=== PATIENT | male | born 1950 | race Caucasian/White ===

== ENCOUNTER 2022-02-21 12:24 | Emergency (ER) | payer MEDICARE, BC, SELFPAY ==
[2022-02-21 12:37] VITALS: BP 145/83; PULSE 86; RESP 16; TEMP 37.2; O2SAT 99
--- NOTE | 2022-02-21 12:46 | ED.EYEPROB ---
HPI - Eye Problem General Chief complaint: Eye Problems Stated complaint: lump on left eye Time Seen by Provider: 02/21/22 12:46 Source: patient Mode of arrival: ambulatory Limitations: no limitations History of Present Illness HPI Narrative: 72-year-old male presents with redness, pain with a bump to his left lower eyelid for 3 to 4 days. He denies vision change. No drainage. Call his PCP for appointment but was unable to see him today. Does not wear contacts. All systems reviewed and negative except as noted above. Related Data Home Medications Medication Instructions Recorded Confirmed celecoxib 200 mg PO DAILY 02/21/22 02/21/22 doxycycline hyclate 20 mg PO DAILY 02/21/22 02/21/22 pimecrolimus 1 applic TOPICAL DAILY 02/21/22 02/21/22 Allergies Allergy/AdvReac Type Severity Reaction Status Date / Time No Known Allergies Allergy Verified 02/21/22 12:50 Review of Systems Review of Systems: CONSTITUTIONAL: Denies fever, chills, or sweats. EYES: Denies visual changes, redness, or discharge. Tenderness and bump to left lower eyelid. ENT: Denies rhinorrhea, congestion, sore throat, or otalgia. CARDIOVASCULAR: Denies chest pain, palpitations, or edema. RESPIRATORY: Denies cough or dyspnea. GASTROINTESTINAL: Denies abdominal pain, nausea, vomiting, or diarrhea. GENITOURINARY: Denies dysuria or hematuria. SKIN: Denies rash or itching. MUSCULOSKELETAL: Denies back pain, joint pain, or myalgia. NEUROLOGIC: Denies headache, numbness, or weakness. PSYCHIATRIC: Denies anxiety or depression. All other systems reviewed are negative, except as documented in HPI. PMFSH Comments At time of signature, agree with nursing past medical, surgical, social and family history. There is no relevant family history pertinent to the presenting complaint. Exam Narrative: GENERAL: This is a well-nourished, well-developed patient, in no apparent distress. HEAD: normocephalic, atraumatic. EYES: PERRL. Sclera clear/white. Vision is grossly intact. Stye to internal left lower eyelid. Wright noted. EARS: External ears normal NOSE: External nose normal THROAT: Mucous membranes moist NECK: Neck supple, non-tender without lymphadenopathy, masses or thyromegaly. CARDIOVASCULAR: Regular rate and rhythm without murmurs, gallops, or rubs. RESPIRATORY: Clear to auscultation. Breath sounds equal bilaterally. No wheezes, rales, or rhonchi. SKIN: warm, Dry, intact with no suspicious lesions or rash, good texture and turgor. NEURO: awake, alert, and oriented to person, place and time. There were no obvious focal neurologic abnormalities. EXTREMITIES: Normal range of motion all extremities. Course Course Level of Care: Express Care Visit Vital Signs Vital signs: Vital Signs Temperature 37.2 C 02/21/22 12:37 Pulse Rate 86 02/21/22 12:37 Respiratory Rate 16 02/21/22 12:37 Blood Pressure 145/83 H 02/21/22 12:37 Pulse Oximetry 99 02/21/22 12:37 Temperature 37.2 C 02/21/22 12:37 Pulse Rate 86 02/21/22 12:37 Respiratory Rate 16 02/21/22 12:37 Blood Pressure 145/83 H 02/21/22 12:37 Pulse Oximetry 99 02/21/22 12:37 At time of signature, agree with nursing past medical, surgical, social and family history. There is no relevant family history pertinent to the presenting complaint. MDM - Eye Problem MDM Narrative Medical decision making narrative: Patient is aware of diagnosis, understands and agrees to treatment plan. Anticipatory guidance given. Patient agrees to follow-up as directed and is aware of reasons to seek care at the emergency department. Portions of this record may have been created with voice recognition software Discharge Plan Discharge Clinical Impression: Hordeolum internum left lower eyelid Patient Disposition: Home, Self-Care Condition: Stable Instructions: Sonia Warner (ED) Additional Instructions: Apply antibiotic ointment as prescribed. Apply warm compress 4 times
== END 2022-02-21 12:57 | disposition home or self-care (01) ==
PROVIDERS: Emergency Provider Nurse Practitioner Family; PCP Internal Medicine
DX: H00.025 Hordeolum internum left lower eyelid (principal); Z96.659 Presence of unspecified artificial knee joint
CPT/HCPCS: 99213; G0463

== ENCOUNTER 2023-01-30 09:22 | Emergency (ER) | payer MEDICARE, BC, SELFPAY ==
--- NOTE | 2023-01-30 09:26 | ED.URI ---
HPI - URI/Sore Throat General Chief Complaint: Upper Respiratory Infection Stated Complaint: Cough/Sinus Time Seen by Provider: 01/30/23 09:27 Source: patient Mode of arrival: ambulatory Limitations: no limitations History of Present Illness HPI Narrative: Parvez is a 73-year-old male patient presenting to the clinic today with complaints of cough and sinus congestion x1 week. He reports no fever or chills. He denies any shortness of breath or chest pain. No known exposure to anybody with COVID, flu, or strep. MD elicited complaint: cough, rhinorrhea and nasal congestion Related Data Home Medications Medication Instructions Recorded Confirmed aspirin 81 mg tablet,delayed mg 01/30/23 release atorvastatin 80 mg tablet mg 01/30/23 benzonatate 100 mg capsule mg PO 01/30/23 lisinopril 2.5 mg tablet mg 01/30/23 metoprolol tartrate 25 mg tablet mg 01/30/23 ticagrelor 90 mg tablet (Brilinta) mg 01/30/23 Allergies Allergy/AdvReac Type Severity Reaction Status Date / Time No Known Allergies Allergy Verified 02/21/22 12:50 Review of Systems Review of Systems: Pertinent positives per HPI. Patient denies any fever, chills, rash, headache, visual changes, dizziness, shortness of breath, chest pain, palpitations, nausea, vomiting, diarrhea, constipation, abdominal pain, or any urinary issues. PMFSH Comments At the time of my signature, I reviewed and agree with the nursing past medical, surgical, social, and family history. There is no relevant family history pertinent to the patient complaint. Exam Narrative: General: Well-developed, well nourished, in no apparent distress Head: Normocephalic, atraumatic Eyes: Pupils equally round and reactive to light bilaterally, EOM intact, sclera and conjunctive clear, no discharge, lids normal Ears: TMs intact and clear, ear canals clear, no drainage, grossly hearing normal. Nose: Nares patent, clear nasal discharge, mild inflammation, no sinus tenderness. Mouth: Oral pharynx without lesions or masses, good dentition, MMM. Postnasal drip Neck: Supple, trachea midline, no enlargement of anterior or posterior cervical nodes, no thyroid masses or goiter palpable. Cardio: Regular rate and rhythm, s1 and s2 normal, no murmur appreciated. Resp: Clear to auscultation bilaterally, no rhonchi, rales, wheezing or rubs Course Course Emergency Course: Portions of this record may have been created with voice recognition software. Level of Care: Express Care Visit Vital Signs Vital signs: Vital signs reviewed MDM - URI/Sore Throat MDM Narrative Medical decision making narrative: At the time of visit patient is resting comfortably on the exam table. I suspect patient has URI with postnasal drip. Prescription for prednisone was sent to the pharmacy and supportive measures were discussed with the patient he voiced understanding discharge instructions and agrees to treatment plan. Differential Diagnosis Differential diagnosis: Likely upper respiratory infection, sinusitis, viral infection, bronchitis, influenza, pharyngitis and other (COVID) Discharge Plan Discharge Clinical Impression: Post-nasal drip Upper respiratory infection Qualifiers: URI type: unspecified URI Qualified Code(s): J06.9 - Acute upper respiratory infection, unspecified Patient Disposition: Home, Self-Care Condition: Stable Instructions: Antibiotic Form, Upper Respiratory Infection (ED), Postnasal Drip (DC) Additional Instructions: Take prescription medications only as prescribed-prednisone May continue Benzonate and Robitussin Increase fluids and stay well hydrated Tylenol/motrin for pain/fever Flonase and OTC antihistamines as directed Vicks vapor rub to open sinuses Sinus rinses for congestion Cepacol spray, cough drops, throat lozenges, warm tea with honey/lemon, gargle salt water to soothe throat BRAT diet for diarrhea Clear liquids x 24 hours then advance as to
[2023-01-30 09:31] VITALS: BP 144/80; PULSE 69; RESP 14; TEMP 36.8; O2SAT 100
== END 2023-01-30 09:46 | disposition home or self-care (01) ==
PROVIDERS: Emergency Provider Nurse Practitioner Family; PCP Internal Medicine
DX: J06.9 Acute upper respiratory infection, unspecified (principal); R09.82 Postnasal drip; Z79.82 Long term (current) use of aspirin
CPT/HCPCS: 99213; G0463

== ENCOUNTER 2023-03-14 14:46 | Emergency (ER) | payer MEDICARE, BC, SELFPAY ==
[2023-03-14 15:00] VITALS: BP 131/75; PULSE 68; RESP 16; TEMP 36.7; O2SAT 99
--- NOTE | 2023-03-14 15:24 | ED.SKABFB ---
HPI - Skin/Abscess/Foreign Bdy General Chief complaint: Skin/Abscess/Foreign Body Stated complaint: Left Arm Wound Time Seen by Provider: 03/14/23 15:24 Source: patient Mode of arrival: ambulatory Limitations: no limitations History of Present Illness HPI narrative: Patient is a 73-year-old male who presents with left arm abrasion that happened 4:00 p.m. last night. States a drill fell and scraped his arm and the bleeding has not stopped. Patient is on blood thinners. Reports cleaning and bandaging it multiple times. Unsure when last tetanus shot was. Related Data Home Medications Medication Instructions Recorded Confirmed aspirin 81 mg tablet,delayed 81 mg DIRECTED 01/30/23 03/14/23 release atorvastatin 80 mg tablet 80 mg DIRECTED 01/30/23 03/14/23 lisinopril 2.5 mg tablet 2.5 mg DIRECTED 01/30/23 03/14/23 metoprolol tartrate 25 mg tablet 25 mg DIRECTED 01/30/23 03/14/23 ticagrelor 90 mg tablet (Brilinta) 90 mg DIRECTED 01/30/23 03/14/23 Allergies Allergy/AdvReac Type Severity Reaction Status Date / Time No Known Allergies Allergy Verified 03/14/23 15:24 Review of Systems Review of Systems: All systems reviewed & are unremarkable except as noted in HPI and below Constitutional: Constitutional: Denies body ache(s), Denies fever(s), Denies headache(s), Denies malaise and Denies weakness Eyes: Eyes: Denies loss of vision ENT: Denies otalgia, Denies headache(s), Denies nasal discharge, Denies sinus pain and Denies sore throat Cardiovascular: Cardiovascular: Denies chest pain, Denies irregular heart rhythm and Denies dyspnea Respiratory: Respiratory: Denies dyspnea Gastrointestinal: Gastrointestinal: Denies abdominal pain, Denies melena, Denies hematochezia, Denies diarrhea, Denies nausea and Denies vomiting Musculoskeletal: Musculoskeletal: Denies back pain, Denies myalgias and Denies arthralgias Integumentary/Breasts: Skin/Breast: Denies pruritus, Denies rash and Reports wounds (Left bicep) Neurologic: Denies headache(s), Denies loss of vision and Denies weakness Psychiatric: Psychiatric: Reports no additional psychiatric complaints PMFSH Comments At time of signature, agree with nursing past medical, surgical, social and family history. There is no relevant family history pertinent to the presenting complaint. Exam Const: General: cooperative, healthy appearing, comfortable, no acute distress and well nourished Nutritional Appearance: well nourished Orientation/consciousness: patient oriented x3 Limitations: no limitations HENMT: Head: normal to inspection, normocephalic and atraumatic Ears: external ears normal Face/Nose/Sinus: Normal external nose present, normal facial exam and face symmetric Face and sinus: normal facial exam and face symmetric Mouth: Yes lip normal Eyes: General: appearance normal, both eyes and all related structures Alignment and Position: alignment normal and position normal Periorbital: periorbital findings normal Eyelids: eyelids normal Pupils: Equal, round and reactive pupils present EOM: EOMs intact bilaterally Neck: Neck: normal visual inspection and full ROM Chest: Chest palpation & inspection: normal inspection of the chest Resp: Effort & Inspection: normal respiratory effort and able to speak in complete sentences Auscultation: clear to auscultation bilaterally Cardio: Rate: regular rate Rhythm: regular rhythm Heart sounds: S1 normal heart sound present and S2 normal heart sound present GI: Inspection: normal to inspection Skin: General skin exam: normal color and no rashes or lesions noted Trauma: laceration left lateral upper arm linear (4 cm, proximal 1cm with active bleeding and abrasion present), actively bleeding and superficial Neuro: General: patient oriented x3 and moves all extremities Cranial nerves: Yes Equal, round and reactive pupils present Speech: normal speech Gait exam (Neuro): Normal gait present Extrem: General:
[2023-03-14] MEDS: TETANUS,DIPHTHERIA,AC PERTUSSIS ADULT (0.5 ML) BOOSTRIX IM (16:02)
== END 2023-03-14 16:13 | disposition home or self-care (01) ==
PROVIDERS: Emergency Provider Nurse Practitioner Family; PCP Internal Medicine
DX: S41.112A Laceration without foreign body of left upper arm, initial encounter (principal); W20.8XXA Other cause of strike by thrown, projected or falling object, initial encounter; Z23 Encounter for immunization; I25.10 Atherosclerotic heart disease of native coronary artery without angina pectoris; Z96.653 Presence of artificial knee joint, bilateral
CPT/HCPCS: 90471; 90715; 99212; G0463

== ENCOUNTER 2024-03-22 07:47 | Outpatient (CLI) | payer MEDICARE, BC, SELFPAY ==
--- NOTE | ~2024-03-22 | PE_ITS ---
EXAMINATION: PET_PETPSMAST_PT DATE: 03/22/2024 10:09 INDICATION: Prostate cancer. TECHNIQUE: 4.935 mCi Ga-68 gozetotide was administered intravenously. Low dose computed tomography (C T) images were acquired from the base of the brain to the proximal thighs for attenuation correction and anatomic localization. Automated exposure control was employed. Dose-length product (DLP) was 985 mGy-cm. Positron emission tomography (PET) images were acquired in the same distribution. COMPARISON: None FINDINGS: Head/neck: There are no pathologically enlarged lymph nodes. Chest: There is mild scarring at the lung apices. There are calcified pleural plaques bilaterally, wh ich may be seen with asbestos exposure. There are peripheral airspace opacities and septal thickening in the lungs, consistent with chronic interstitial lung disease (asbestosis). No bronchiectasis or h oneycombing. Cardiomegaly is noted. There are coronary artery calcifications. No pericardial effusion . There is mild mediastinal lymphadenopathy, likely reactive. There is mild bilateral gynecomastia. Abdomen/pelvis/proximal thighs: The liver, gallbladder, spleen, pancreas, adrenal glands, and kidneys are normal. The prostate is moderately enlarged. There is focal increased activity in the prostate o n the right with maximum SUV of 20.4. There is diffuse bladder wall thickening, likely secondary to c hronic outlet obstruction. There are no dilated loops of bowel. The appendix is normal. There are no pathologically enlarged lymph nodes. There is no free intraperitoneal fluid. There is a right inguina l hernia containing fat. There are widespread arterial calcifications. There are chronic bilateral L5 pars defects. There is 10 mm anterolisthesis of L5 on S1. There is no osseous malignancy. IMPRESSION: 1. Moderately enlarged prostate with focal increased activity on the right with maximum SUV of 20.4, consistent with primary malignancy. No evidence of metastatic disease. Reviewed, dictated and finalized at location A. IMPRESSION: 1. Moderately enlarged prostate with focal increased activity on the right with maximum SUV of 20.4, consistent with primary malignancy. No evidence of metast atic disease.
== END 2024-03-22 07:48 | disposition home or self-care (01) ==
PROVIDERS: PCP Internal Medicine; Visit Provider Urology
DX: C61 Malignant neoplasm of prostate (principal)
CPT/HCPCS: 78815; A9596

== ENCOUNTER 2024-07-18 12:46 | Emergency (ER) | payer MEDICARE, BC, SELFPAY | END 2024-07-18 14:00 | disposition left against medical advice (07) | PROVIDERS: Emergency Provider Nurse Practitioner; PCP Internal Medicine | DX: Z53.21 Procedure and treatment not carried out due to patient leaving prior to being seen by health care provider (principal) | CPT/HCPCS: 99199 ==

== ENCOUNTER 2025-01-23 08:19 | Emergency (ER) | payer MEDICARE, BC, SELFPAY ==
[2025-01-23 08:27] VITALS: BP 119/76; PULSE 76; RESP 14; TEMP 36.8; O2SAT 98
--- NOTE | 2025-01-23 08:27 | ED.SKABFB ---
HPI - Skin/Abscess/Foreign Bdy General Chief complaint: Skin/Abscess/Foreign Body Stated complaint: Rash Time Seen by Provider: 01/23/25 08:27 Source: patient, RN notes reviewed and old records reviewed Mode of arrival: ambulatory Limitations: no limitations History of Present Illness HPI narrative: Patient presents with complaints of painful rash that starts on left buttock and goes down the left leg. He reports that the rash has been present for 2-3 days and is quite painful. He denies any injury or trauma. Does admit to history of chickenpox as a child. He has not been taking anything for his symptoms. He voices no other concerns or complaints today. Related Data Home Medications ?Medication ?Instructions ?Recorded ?Confirmed ?Last Taken ?Type aspirin 81 mg tablet,delayed 81 mg DIRECTED 01/30/23 07/18/24 Unknown History release atorvastatin 80 mg tablet 80 mg DIRECTED 01/30/23 07/18/24 Unknown History lisinopril 2.5 mg tablet 2.5 mg DIRECTED 01/30/23 07/18/24 Unknown History metoprolol tartrate 25 mg tablet 25 mg DIRECTED 01/30/23 07/18/24 Unknown History ticagrelor 90 mg tablet (Brilinta) 90 mg DIRECTED 01/30/23 07/18/24 Unknown History epinephrine 0.3 mg/0.3 mL 01/23/25 Unknown History injection, auto-injector tamsulosin 0.4 mg capsule mg PO 01/23/25 Unknown History Allergies Allergy/AdvReac Type Severity Reaction Status Date / Time bee venom protein (honey Allergy Severe Anaphylaxis Verified 01/23/25 08:48 bee) (bees) Review of Systems Review of Systems: All systems reviewed & are unremarkable except as noted in HPI and below Constitutional: Constitutional: Reports no additional constitutional complaints ENT: Reports system reviewed and no additional complaints, except as documented Cardiovascular: Cardiovascular: Reports no additional cardiovascular complaints Respiratory: Respiratory: Reports no additional respiratory complaints Gastrointestinal: Gastrointestinal: Reports no additional gastrointestinal complaints Integumentary/Breasts: Skin/Breast: Reports rash and Reports skin pain PMFSH Comments At the time of my signature, I reviewed and agree with the nursing past medical, surgical, social, and family history. There is no relevant family history pertinent to the patient complaint. Exam Const: General: cooperative, no acute distress, alert and awake Orientation/consciousness: oriented to person, oriented to place and oriented to time HENMT: Head: normal to inspection Resp: Effort & Inspection: normal respiratory effort and able to speak in complete sentences Auscultation: clear to auscultation bilaterally, no crackles, no rales, no rhonchi and no wheezes Cardio: Palpation: normal PMI Rate: regular rate Rhythm: regular rhythm Heart sounds: S1 normal heart sound present and S2 normal heart sound present Skin: Rashes: rashes noted vesicles left posterior other Neuro: General: oriented to person, oriented to place and oriented to time Cranial nerves: Yes CN's II-XII intact bilaterally Psych: Appearance: grossly normal Thought process: Normal thought process present Insight: Good insight present (Psych) Judgement: Good judgement present (Psych) Course Course Level of Care: Express Care Visit Vital Signs Vital signs: Reviewed MDM - Skin/Abscess/Foreign Bdy MDM Narrative Medical decision making narrative: History and exam consistent with shingles, start antiviral therapy. Discharge instructions reviewed with patient, as well as provided in writing per nursing staff. The instructions also include specific and strict return/GO TO THE ER as well as f/u information. All questions have been answered, and the patient deny any further questions with discharge and discharge plan. Some parts of this dictation were generated by voice recognition software and may contain typographical and/or grammatical inaccuracies. Differential Diagnosis Differential diagnosis: Likely dermatophytosis, urticaria, herpes zoster, allergic reaction to drug, cellulitis, insect bites and contact dermatitis Medical Records Attestation: I reviewed the patient's medical records. Discharge Plan Discharge Clinical Impression: Shingles Qualifiers: Herpes zoster complications: without complications Qualified Code(s): B02.9 - Zoster without complications Patient Disposition: Home, Self-Care Condition: Stable Instructions: Antibiotic Form, Shingles (ED) Additional Instructions: Take medications as prescribed. Follow-up with primary care provider. Emergency department for new or worse symptoms Patient Language: Mongolian Prescriptions: New valacyclovir [Valtrex] 1 gram tablet 1,000 mg PO TID 7 Days Qty: 21 1RF No Action tamsulosin 0.4 mg capsule PO epinephrine 0.3 mg/0.3 mL auto-injector atorvastatin 80 mg tablet 80 mg DIRECTED aspirin 81 mg tablet,delayed release (DR/EC) 81 mg DIRECTED lisinopril 2.5 mg tablet 2.5 mg DIRECTED metoprolol tartrate 25 mg tablet 25 mg DIRECTED Brilinta 90 mg tablet 90 mg DIRECTED Follow-up/Referrals: Elizabeth,Urbano Villasenor MD [Primary Care Provider] - 2 Weeks Time of Disposition: 08:55
== END 2025-01-23 09:00 | disposition home or self-care (01) ==
PROVIDERS: Emergency Provider Nurse Practitioner Family; PCP Internal Medicine
DX: B02.9 Zoster without complications (principal); I10 Essential (primary) hypertension; E78.00 Pure hypercholesterolemia, unspecified; Z95.5 Presence of coronary angioplasty implant and graft; Z96.653 Presence of artificial knee joint, bilateral; Z85.46 Personal history of malignant neoplasm of prostate
CPT/HCPCS: 99213; G0463

== ENCOUNTER 2025-05-26 12:56 | Emergency (ER) | payer OTHER, MEDICARE, BC, SELFPAY ==
[2025-05-26] VITALS (12 sets, daily range): BP systolic 121–181; BP diastolic 72–99; PULSE 62–85; RESP 14–22; TEMP 36.8; O2SAT 96–100
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
--- OUTSIDE RECORDS SUMMARY | 2025-05-26 13:48 | XMS_ITS | Referral Summary ---
Author Organization [facility] Address [address] [place] [phone] Care Team Providers Care Mucking Machine Operator Name Role Phone Urbano Johnson MD Primary Care Provider Og Posey MD Unavailable [phone] Kimi Clayton MD Unavailable [phone] Encounters Date Type Department Care Team Description 04/25/2025 8:30 AM CDT Office Visit [facility] [address] [place] [phone] Omar Garcia MD Arthritis of left elbow (Primary Dx) 03/28/2025 8:30 AM CDT Office Visit [facility] [address] [place] [phone] Omar Garcia MD Left carpal tunnel syndrome (Primary Dx); Arthritis of left elbow; Trigger middle finger of right hand; Arthritis of left wrist 03/02/2025 - 03/02/2025 11:59 PM CDT Hospital Encounter [facility] [employer] [address] [place] [address] Discharge Disposition: Discharge to home or self care from Last 3 Months Allergies Active Allergy Reactions Criticality Noted Date Comments Venom-Honey Bee Swelling High 07/20/2024 Medications multivitamin tablet,chewable Take 2 tablet/chew tab by mouth daily Active acetaminophen (TYLENOL) 500 mg tabletIndicatio ns:Pain Take 2 tablets (1,000 mg total) by mouth every 6 (six) hours as needed for pain Active aspirin 81 mg enteric coated tablet Take 1 tablet (81 mg total) by mouth daily 3 Active atorvastatin (LIPITOR) 80 mg tablet Take 1 tablet (80 mg total) by mouth nightly 3 Active lisinopriL (PRINIVIL,ZESTR IL) 2.5 mg tablet Take 1 tablet (2.5 mg total) by mouth daily 3 Active metoprolol tartrate (LOPRESSOR) 25 mg immediate release tablet Take 1 tablet (25 mg total) by mouth 2 (two) times a day 3 Active Brilinta 90 mg tablet 3 Active EPINEPHrine 0.3 mg/0.3 mL auto-injection syringe Inject 0.3 mL (0.3 mg total) into the muscle as instructed as needed 4 Active diphenoxylate-a tropine (LOMOTIL) 2.5-0.025 mg per tablet Take 1 tablet by mouth 4 (four) times a day as needed 4 Active traMADoL (ULTRAM) 50 mg tablet Take 1 tablet (50 mg total) by mouth every 6 (six) hours as needed for pain 15 tablet 4 Active valACYclovir (VALTREX) 500 mg tablet Take 1 tablet (500 mg total) by mouth 3 (three) times a day Active traMADoL (ULTRAM) 50 mg tablet Take 1 tablet (50 mg total) by mouth every 6 (six) hours as needed for pain 15 tablet 5 Active Active Problems Problem Noted Date Diagnosed Date Arthritis of left elbow 03/29/2025 Carpal tunnel syndrome on right 11/10/2024 Carcinoma of prostate 11/10/2024 Hypertension 11/10/2024 Pain of right hand 10/25/2024 Left carpal tunnel syndrome 10/25/2024 Trigger middle finger of right hand 10/25/2024 Hand arthritis 10/25/2024 Left ventricular systolic dysfunction 05/22/2022 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 05/16/2022 H/O heart artery stent 05/16/2022 Status post total right knee replacement 022 Primary osteoarthritis of right knee 10/30/2021 Overview (10/30/2021): Added automatically from request for surgery [id number] Ganglion cyst 08/11/2019 Rupture of biceps tendon 05/16/2010 Social History Tobacco Use Types Packs/Day Years Used Date Smoking Tobacco: Never Smokeless Tobacco: Never Alcohol Use Standard Drinks/Week Comments Yes 12 (1 standard drink = 0.6 oz pu re alcohol) Social Connection and Isolat ion Panel [NHANES] Answer Date Recorded In a typical week, how many times do you talk on the phone with family, friends, or neighbors? More than three times a week 01/03/2022 How often do you get togethe r with friends or relatives? More than three times a week 01/03/2022 How often do you attend chur ch or denominational services? Never 01/03/2022 Do you belong to any clubs o r organizations such as rastafari groups, unions, fraternal or athletic groups, or school groups? No 01/03/2022 How often do you attend meet ings of the clubs or organizations you belong to? Never 01/03/2022 Are you , , di vorced, , never , or living with a partner? 01/03/2022 AUDIT-C Answer Date Recorded Q1: How often do you have a drink containing alc ohol? Monthly or less 01/25/2025 Q2: How many drinks containi ng alcohol do you have on a typical day when you are drinking? 3 or 4 01/25/2025 Q3: How often do you have si x or more drinks on one occasion? Never 01/25/2025 Overall Financial Resource Strain (CARDIA) Answe r Date Recorded How hard is it for you to pa y for the very basics like food, housing, medical care, and heating? Not hard at all 01/03/2022 Hunger Vital Sign Answer Date Recorded Within the past 12 months, y ou worried that your food would run out before you got the money to buy more. Never true 01/03/20 22 Within the past 12 months, t he food you bought just didn't last and you didn't have money to get more. Never true 01/03/2022 PRAPARE - Transportation Answer Date Re corded Lack of Transportation (Medical) Not on file 01/03/2022 In the past 12 months, has l ack of transportation kept you from meetings, work, or from getting things needed for daily living? No 01/03/2022 Housing Stability Vital Sign Answer Arnaldo e Recorded In the last 12 months, was t here a time when you were not able to pay the mortgage or rent on time? No 01/03/2022 Number of Places Lived in the Last Year Not on f ile 01/03/2022 In the last 12 months, was t here a time when you did not have a steady place to sleep or slept in a penitentiary (including now)? No 01/03/2022 Personal Safety Answer Date Recorded Have you ever been in or are you currently in a harmful physical or emotional relationship or is someone making you feel afraid or unsafe? 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 file Not on file Not on f ile Last Filed Vital Signs Vital Sign Reading Time Taken Comments Blood Pressure 125/84 01/25/2025 8:00 AM LEGAL RESEARCH ANALYST Pulse 60 01/25/2025 8:00 AM LEGAL RESEARCH ANALYST Temperature 36.5 C (97.7 F) 01/25/2025 7:48 AM LEGAL RESEARCH ANALYST Respiratory Rate 18 01/25/2025 7:48 AM LEGAL RESEARCH ANALYST Oxygen Saturation 100% 01/25/2025 8:00 AM LEGAL RESEARCH ANALYST Inhaled Oxygen Concentration - - Weight 86.8 kg (191 lb 4.8 oz) 01/25/2025 5:59 A M LEGAL RESEARCH ANALYST Height 177.8 cm (5' 10) 01/25/2025 5:59 AM LEGAL RESEARCH ANALYST Body Mass Index 27.45 01/25/2025 5:59 AM LEGAL RESEARCH ANALYST Plan of Treatment Not on file Medical Devices Implanted Type Area Fence Making Machine Operator Device Identifier Shelf Expiration Date Model / Serial / Lot Left Total Knee Arthroplasty Implanted:Og Posey MD (Quantity not on file) Left: Knee Description:2016 Knee Replacement Bilatera l: Knee [employer] 6191-1-010 Simplex P Radiopaque Full Dose Cement Bone Sterile - [id number] Implanted:Qty: 1 on 01/02/2022 by Og Posey MD at [facility] Right: Knee [employer] 01/22/2024 6191-1-010 / / [id number] [employer]Or tho [id number] Legion 11mm Cruciate Retaining High Flexion Knee 5-6 Insert - [id number] Implanted:Qty: 1 on 01/02/2022 by Og Posey MD at [facility] Right: Knee [employer] [id number] 10/20/2031 [id number] / / [id number] [employer] [id number] Kathy Ii Legion Spc Cruciate Retain Knee Right 7 Component - [id number] Implanted:Qty: 1 on 01/02/2022 by Og Posey MD at [facility] Right: Knee [employer] [id number] 08/21/2031 [id number] / / [id number] [employer] [id number] Kathy Ii [id number] Biconvex Component Patellar - [id number] Implanted:Qty: 1 on 01/02/2022 by Og Posey MD at [facility] [employer] [id number] / / [id number] [employer] [id number] Kathy Ii Cement Right Knee 6 Baseplate Tibial Titanium - [id number] Implanted:Qty: 1 on 01/02/2022 by Og Posey MD at [facility] [employer] [id number] / / [id number] Procedures Procedure Name Priority Date/Time Associated Diagnosis Comments [place] ARTHROCENTESIS ASPIR&/INJ INTERM JT/BURS W/O US Routine 03/28/2025 8:30 AM CDT Arthritis of left elbow XR TRANSFER OF OUTSIDE FILMS Routine 03/02/2025 12:00 AM CDT from Last 3 Months Results * [place] ARTHROCENTESIS ASPIR&/INJ INTERM JT/BURS W/O US (03/28/2025 8:30 AM CDT) Narrative Omar Garcia MD - 03/28/2025 8:30 AM CDT Omar Garcia MD 03/29/2025 6:34 AM Medium Joint (Ankle, Elbow, Shoulder (AC), Wrist) Injection: L elbow Performed by: Omar Garcia MD Authorized by: Omar Garcia MD Medium Joint Injection/Aspiration: Consent Given by: Patient Site marked: the procedure site was marked Verbal consent obtained?: Yes Supporting Documentation: Indications: Pain and joint swelling Procedure Details: Location: Elbow Site: L elbow Prep: patient was prepped and draped in usual sterile fashion Needle Size: 22 G Approach: Posterolateral Medications: 6 mL lidocaine 10 mg/mL (1 %); 80 mg triamcinolone 40 mg/mL us Omar Garcia MD IN CLINIC/BEDSIDE ORDERA BLES Final Result * XR Outside Reference (03/02/2025 12:00 AM CDT) Narrative [facility] - 03/28/2025 8:31 AM CDT This order has been auto-finalized and does not contain a result. us Provider Transcribed Order IMG XR PROCEDURES Fin al Result [facility] from Last 3 Months Insurance MEDICARE [facility] MEDICARE [place] [employer] MEDICARE [facility] O MEDICARE [facility] Advance Directives For more information, please contact: [phone] * Full Code (Latest Code Status on File) Date Activated Date Inactivated Comments 01/02/2022 10:19 AM 01/03/2022 5:04 PM Care Teams Mucking Machine Operator Relationship Specialty Start Date End Date Urbano Johnson MD PCP - General Internal Medicine 01/13/19 Og Posey MD [address] [facility] [address] [address] Consulting Physician Orthopedic Surgery 01/02/22 Kimi Clayton MD [facility] [address] [facility] [place] [address] Referring Physician Interface Designer 11/11/24
--- OUTSIDE RECORDS SUMMARY | 2025-05-26 13:48 | XMS_ITS | Encounter Summary ---
Author Organization [facility] Address [address] [place] [id number] Care Team Providers Care Lunchroom Attendant Name Role Phone Urbano Johnson MD Primary Care Provider [phone] Chrissy Mueller RN Unavailable Encounter Details Date Type Department Care Team (Late st Contact Info) Description 06/04/2022 Hospital Orders Only [facility], [facility] [address] [place], [place] [phone] Ayla Almeida MD [facility]. [facility] [address] [place], [place] [id number] Social History Tobacco Use Types Packs/Day Years Used Date Smoking Tobacco: Never Smokeless Tobacco: Never Alcohol Use Standard Drinks/Week Comments Yes 0 (1 standard drink = 0.6 oz pur e alcohol) couple beers per night AUDIT-C Answer Date Recorded Frequency of Alcohol Consumption 4 or more times a week 02/09/2020 Average Number of Drinks 1 or 2 020 Frequency of Binge Drinking Never 01/22 PHQ-2 Answer Date Recorded PHQ-2 Score - If the patient scores above 3, please move on to questions 3-9 0 05/16/2022 Sex and Gender Information Value Date Recorded Sex Assigned at Male 03/02/2025 8:48 AM CDT Legal Sex Male 5:42 PM CDT Gender Identity Not on file Sexual Orientation Not on file 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 No / Unsure 05/24/2022 12:10 PM CDT documented as of this encounter Functional Status * RETIRED Are you deaf or do you have serious difficulty hearing Answer Date of Assessment Author Status No 05/10/2022 6:23 PM CDT Activ e * RETIRED Are you blind or do you have serious difficulty seeing, even when wearing glasses? Answer Date of Assessment Author Status No 05/10/2022 6:23 PM CDT Activ e * Do you have serious difficulty walking or climbing stairs? Answer Date of Assessment Author Status No 05/10/2022 6:23 PM CDT Carmela Osullivan RN Active * Do you have difficulty dressing or bathing? Answer Date of Assessment Author Status No 05/10/2022 6:23 PM CDT Carmela Osullivan RN Active * Because of a physical, mental, or emotional condition, do you have difficulty doing errands alone such as visiting a doctor's office or shopping? Answer Date of Assessment Author Status No 05/10/2022 6:23 PM CDT Carmela Osullivan RN Active documented as of this encounter Mental Status * Because of a physical, mental, or emotional condition, do you have serious difficulty concentrating, remembering, or making decisions? Answer Entry Date Author Status No 05/10/2022 6:23 PM CDT Carmela Osullivan RN Active documented in this encounter Plan of Treatment Upcoming Encounters Date Type Department Care Team (Late st Contact Info) Description 10/14/2025 10:00 AM WELLNESS MANAGER [facility] [address] [place] [address] Kimi Clayton MD [facility] [address] [place] [address] 11/21/2025 8:20 AM WELLNESS MANAGER Office Visit [facility] Family & Internal Medicine - [address] [phone] Urbano Johnson MD [address] [place] [phone] documented as of this encounter Visit Diagnoses Not on filedocumented in this encounter Additional Health Concerns Assessment Noted Time PHQ-9 Depression Total Score: 0 12/19/19 22 12:12 PM WELLNESS MANAGER documented as of this encounter Care Teams Lunchroom Attendant Relationship Specialty Start Date End Date Urbano Johnson MD [address] [place] [address] PCP - General 10/23/15 Chrissy Mueller, RN [address] [place], [place] [phone] Pyrometer Mechanic (Ambulatory) REGISTERED NURSE 05/13/22 documented as of this encounter
--- OUTSIDE RECORDS SUMMARY | 2025-05-26 13:48 | XMS_ITS | Continuity of Care Document ---
Author Name [facility] Organization [facility] Care Team Providers Care Water Well Driller Name Role Phone [facility] Unavailable Unavailable Problems Combined list of problems from [facility] and [facility] facilities. It does not include entries that were removed or entered in error. Problem Status Onset Date Problem Type Date of Resolution Comments Source Benign essential hypertension Active Condition [facility] Carcinoma of prostate Active Condition [facility] Exposure to potentially hazardous substance ([facility] [id number]) Active Condition Sep 22 4 Entered By: KUSH MURILLO Comment: Entered automatically through JOSEPH Problem List documentation program [facility] Hearing loss Active Condition [facility] Heart disease Active Condition [facility] Hypertension Active Condition [facility] Tinnitus Active Condition [facility] Diagnosis: ICD-10-CM I10 Essential (primary) hypertension Active Diagnosis 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 Medication Details Route Status Patient Instructions Prescription Expires Prescription Number Last Dispense Date Ordering Provider Order Date Order Qty Source ACETAMINOPH EN 325MG TAB TAKE ONE TABLET BY MOUTH FOUR TIMES A DAY NEEDED ORAL ACTIVE Esperanza GOFF 2023 [facility] Matt ASPIRIN 81MG TAB,EC TAKE ONE TABLET BY MOUTH ONCE A DAY ORAL ACTIVE Esperanza GOFF 2023 [facility] Matt ATORVASTATI N CA 80MG TAB TAKE ONE TABLET BY MOUTH EVERY EVENING ORAL ACTIVE Esperanza GOFF 2023 [facility] ATROPINE SO4 0.025MG/DIP HENOXYLATE HCL 2.5MG TAB TAKE ONE TABLET BY MOUTH FOUR TIMES A DAY NEEDED ORAL ACTIVE Esperanza GOFF 2023 [facility] Shaka LISINOPRIL 5MG TAB TAKE ONE-HALF TABLET BY MOUTH ONCE A DAY ORAL ACTIVE Esperanza GOFF 2023 [facility] METOPROLOL TARTRATE 50MG TAB TAKE ONE-HALF TABLET BY MOUTH TWICE A DAY ORAL ACTIVE Esperanza GOFF 2023 [facility] MULTIVITAMI NS CAP/TAB TAKE TWO TABLETS BY MOUTH ONCE A DAY ORAL ACTIVE Esperanza GOFF 2023 [facility] NITROGLYCER IN 0.4MG TAB,SUBLING UAL DISSOLVE ONE TABLET UNDER THE TONGUE ONE-TIME NEEDED SUBLIN GUAL ACTIVE Esperanza GOFF 2023 [facility] Shaka OXYMETAZOLI NE HCL 1% CREAM,TOP APPLY THIN LAYER TO AFFECTED AREA(S) ONCE A DAY TOPICA L ACTIVE Esperanza GOFF 2023 [facility] PIMECROLIMU S 1% CREAM,TOP APPLY LIGHTLY TO AFFECTED AREA(S) TWICE A DAY NEEDED TOPICA L ACTIVE Esperanza GOFF 2023 [facility] Allergies, Adverse Reactions, Alerts Combined list of allergies from [facility] facilities. It does not include entries that were removed or entered in error. Substance Category Reaction Severity Reaction type Status Date Reported Comments Source BEE VENOM Propensity to adverse reaction (finding) Swelling active 09/10/2024 [facility] Immunizations Combined list of available immunizations from the [facility] facilities. Immunization Series Date Given Administered By Site Reaction Lot Number CVX Code Drug Buyer Liaison Status Comments Source TDAP 2022 115 complet ed HISTORICA L INFORMATI ON - FROM PATIENT'S WRITTEN RECORD, [facility] Results Combined list of recent chemistry, hematology and other laboratory results from [facility] and [facility], ranging from 15 months to all on record, depending upon the facility. Order Name Results Value Reference Range Date Interpretation Specimen Comments Source URINALYS IS (STL-PB) COLOR OF URINE Light-Ye llow 09/13 Specimen Type: URINE No comment entered. Ordering Provider: ANGLE GOFF Report Released Date/Time: Sep 10, 2024 01:20 PM Reporting Lab: [address] [address] Performing Lab: [address] [address] [facility] URINALYS IS (STL-PB) BILIRUBIN. TOTAL [PRESENCE] IN URINE BY TEST STRIP Negative mg/dL 09/13 Specimen Type: URINE No comment entered. Ordering Provider: ANGLE GOFF Report Released Date/Time: Sep 10, 2024 01:20 PM Reporting Lab: [address] [address] Performing Lab: [address] [address] [facility] URINALYS IS (STL-PB) PH OF URINE BY TEST STRIP 7.0 5.0 - 8.0 09/13 Specimen Type: URINE No comment entered. Ordering Provider: ANGLE GOFF Report Released Date/Time: Sep 10, 2024 01:20 PM Reporting Lab: [address] [address] Performing Lab: [address] [address] [facility] URINALYS IS (STL-PB) APPEARANCE OF URINE Clear 09/13 Specimen Type: URINE No comment entered. Ordering Provider: ANGLE GOFF Report Released Date/Time: Sep 10, 2024 01:20 PM Reporting Lab: [address] [address] Performing Lab: [address] [place] [address] [facility] URINALYS IS (STL-PB) NITRITE [PRESENCE] IN URINE BY TEST STRIP Negative mg/dL 09/13 Specimen Type: URINE No comment entered. Ordering Provider: ANGLE GOFF Report Released Date/Time: Sep 10, 2024 01:20 PM Reporting Lab: [address] [address] Performing Lab: [address] [address] [facility] URINALYS IS (STL-PB) GLUCOSE [MASS/VOLU ME] IN URINE BY TEST STRIP Normalmg /dL 09/13 Specimen Type: URINE No comment entered. Ordering Provider: ANGLE GOFF Report Released Date/Time: Sep 10, 2024 01:20 PM Reporting Lab: [address] [address] Performing Lab: [address] [address] [facility] URINALYS IS (STL-PB) PROTEIN [MASS/VOLU ME] IN URINE BY TEST STRIP Negative mg/dL 09/13 Specimen Type: URINE No comment entered. Ordering Provider: ANGLE GOFF Report Released Date/Time: Sep 10, 2024 01:20 PM Reporting Lab: [address] [address] Performing Lab: [address] [address] [facility] URINALYS IS (STL-PB) URN.UROBIL INOGEN Normalmg /dL 09/13 Specimen Type: URINE No comment entered. Ordering Provider: ANGLE GOFF Report Released Date/Time: Sep 10, 2024 01:20 PM Reporting Lab: [address] [address] Performing Lab: [address] [place] [address] [facility] URINALYS IS (STL-PB) HEMOGLOBIN [MASS/VOLU ME] IN URINE BY TEST STRIP Negative mg/dL 09/13 Specimen Type: URINE No comment entered. Ordering Provider: ANGLE GOFF Report Released Date/Time: Sep 10, 2024 01:20 PM Reporting Lab: [place] [address] [facility] [address] Performing Lab: [address] [address] [facility] URINALYS IS (STL-PB) KETONES [MASS/VOLU ME] IN URINE BY TEST STRIP Negative mg/dL 09/13 Specimen Type: URINE No comment entered. Ordering Provider: ANGLE GOFF Report Released Date/Time: Sep 10, 2024 01:20 PM Reporting Lab: [address] [address] Performing Lab: [place] [address] [facility] [address] [facility] URINALYS IS (STL-PB) URN.LEUK.E ST. Negative mg/dL 09/13 Specimen Type: URINE No comment entered. Ordering Provider: ANGLE GOFF Report Released Date/Time: Sep 10, 2024 01:20 PM Reporting Lab: [place] [address] [facility] [address] Performing Lab: [address] [address] [facility] URINALYS IS (STL-PB) SPECIFIC GRAVITY OF URINE 1.014 09/13 Specimen Type: URINE No comment entered. Ordering Provider: ANGLE GOFF Report Released Date/Time: Sep 10, 2024 01:20 PM Reporting Lab: [address] [address] Performing Lab: [address] [place] [address] [facility] COMPREHE NSIVE METABOLI C PANEL CREATININE [MASS/VOLU ME] IN SERUM OR PLASMA 0.81 mg/dL 0.7 - 1.3 09/13 Specimen Type: PLASMA Comment: No hemolysis noted. Ordering Provider: ANGLE GOFF Report Released Date/Time: Sep 10, 2024 01:20 PM Reporting Lab: [place] [address] [facility] [address] Performing Lab: [place] [address] [facility] [address] [facility] COMPREHE NSIVE METABOLI C PANEL UREA NITROGEN [MASS/VOLU ME] IN SERUM OR PLASMA 12.5 mg/dL 9.0 - 25.0 09/13 Specimen Type: PLASMA Comment: No hemolysis noted. Ordering Provider: ANGLE GOFF Report Released Date/Time: Sep 10, 2024 01:20 PM Reporting Lab: [place] [address] [facility] [address] Performing Lab: [place] [address] [facility] [address] [facility] COMPREHE NSIVE METABOLI C PANEL GLUCOSE [MASS/VOLU ME] IN SERUM OR PLASMA 107 mg/dL 72 - 99 09/13 H Specimen Type: PLASMA Comment: No hemolysis noted. Ordering Provider: ANGLE GOFF Report Released Date/Time: Sep 10, 2024 01:20 PM Reporting Lab: [place] [address] [facility] [address] Performing Lab: [place] [address] [facility] [address] [facility] COMPREHE NSIVE METABOLI C PANEL SODIUM [MOLES/VOL UME] IN SERUM OR PLASMA 135 meq/L 136 - 145 09/13 L Specimen Type: PLASMA Comment: No hemolysis noted. Ordering Provider: ANGLE GOFF Report Released Date/Time: Sep 10, 2024 01:20 PM Reporting Lab: [facility] [address] [facility] [address] Performing Lab: [facility] [address] [facility] [address] [facility] COMPREHE NSIVE METABOLI C PANEL POTASSIUM [MOLES/VOL UME] IN SERUM OR PLASMA 4.6 meq/L 3.5 - 5 09/13 Specimen Type: PLASMA Comment: No hemolysis noted. Ordering Provider: ANGLE GOFF Report Released Date/Time: Sep 10, 2024 01:20 PM Reporting Lab: [place] [address] [address] [facility] [address] Performing Lab: [place] [address] [facility] [address] [facility] COMPREHE NSIVE METABOLI C PANEL CHLORIDE [MOLES/VOL UME] IN SERUM OR PLASMA 103 meq/L 98 - 107 09/13 Specimen Type: PLASMA Comment: No hemolysis noted. Ordering Provider: ANGLE GOFF Report Released Date/Time: Sep 10, 2024 01:20 PM Reporting Lab: [place] [address] [facility] [address] Performing Lab: [place] [address] [address] [facility] [address] [facility] COMPREHE NSIVE METABOLI C PANEL CARBON DIOXIDE, TOTAL [MOLES/VOL UME] IN SERUM OR PLASMA 23 meq/L 22 - 31 09/13 Specimen Type: PLASMA Comment: No hemolysis noted. Ordering Provider: ANGLE GOFF Report Released Date/Time: Sep 10, 2024 01:20 PM Reporting Lab: [place] [address] [facility] [address] Performing Lab: [place] [address] [facility] [address] [facility] COMPREHE NSIVE METABOLI C PANEL CALCIUM [MASS/VOLU ME] IN SERUM OR PLASMA 9.5 mg/dL 8.4 - 10.4 10/21 /2024 Specimen Type: PLASMA Comment: No hemolysis noted. Ordering Provider: ANGLE GOFF Report Released Date/Time: Sep 10, 2024 01:20 PM Reporting Lab: [facility] [address] [place] [address] Performing Lab: [facility] [address] [facility] [address] [facility] COMPREHE NSIVE METABOLI C PANEL PROTEIN [MASS/VOLU ME] IN SERUM OR PLASMA 7.9 g/dL 6 - 8.6 09/13 Specimen Type: PLASMA Comment: No hemolysis noted. Ordering Provider: ANGLE GOFF Report Released Date/Time: Sep 10, 2024 01:20 PM Reporting Lab: [address] [address] Performing Lab: [address] [address] [facility] COMPREHE NSIVE METABOLI C PANEL ALBUMIN [MASS/VOLU ME] IN SERUM OR PLASMA 4.3 g/dL 3.4 - 5 09/13 Specimen Type: PLASMA Comment: No hemolysis noted. Ordering Provider: ANGLE GFOF Report Released Date/Time: Sep 10, 2024 01:20 PM Reporting Lab: [address] [address] Performing Lab: [place] [address] [facility] [address] [facility] COMPREHE NSIVE METABOLI C PANEL BILIRUBIN. TOTAL [MASS/VOLU ME] IN SERUM OR PLASMA 0.7 mg/dL 0.2 - 1.2 09/13 Specimen Type: PLASMA Comment: No hemolysis noted. Ordering Provider: ANGLE GOFF Report Released Date/Time: Sep 10, 2024 01:20 PM Reporting Lab: [place] [address] [facility] [address] Performing Lab: [address] [address] [facility] COMPREHE NSIVE METABOLI C PANEL ALKALINE PHOSPHATAS E [ENZYMATIC ACTIVITY/V OLUME] IN SERUM OR PLASMA 102 U/L 40 - 150 09/13 Specimen Type: PLASMA Comment: No hemolysis noted. Ordering Provider: ANGLE GOFF Report Released Date/Time: Sep 10, 2024 01:20 PM Reporting Lab: [place] [address] [facility] [address] Performing Lab: [place] [address] [facility] [address] [facility] COMPREHE NSIVE METABOLI C PANEL ASPARTATE AMINOTRANS FERASE [ENZYMATIC ACTIVITY/V OLUME] IN SERUM OR PLASMA 31 U/L 5 - 34 09/13 Specimen Type: PLASMA Comment: No hemolysis noted. Ordering Provider: ANGLE GOFF Report Released Date/Time: Sep 10, 2024 01:20 PM Reporting Lab: [place] [address] [facility] [address] Performing Lab: [place] [address] [facility] [address] [facility] COMPREHE NSIVE METABOLI C PANEL ALANINE AMINOTRANS FERASE [ENZYMATIC ACTIVITY/V OLUME] IN SERUM OR PLASMA 26 U/L 8 - 40 09/13 Specimen Type: PLASMA Comment: No hemolysis noted. Ordering Provider: ANGLE GOFF Report Released Date/Time: Sep 10, 2024 01:20 PM Reporting Lab: [place] [address] [facility] [address] Performing Lab: [place] [address] [facility] [address] [facility] COMPREHE NSIVE METABOLI C PANEL GLOMERULAR FILTRATION RATE/1.73 SQ M.PREDICTE D [VOLUME RATE/AREA] IN SERUM, PLASMA OR BLOOD BY CREATININE -BASED FORMULA (CKD-EPI 2020) 92.0 60 09/13 Specimen Type: PLASMA Comment: No hemolysis noted. Ordering Provider: ANGLE GOFF Report Released Date/Time: Sep 10, 2024 01:20 PM Reporting Lab: [facility] [address] [facility] [address] Performing Lab: [place] [address] [facility] [address] [facility] CBC LEUKOCYTES [#/VOLUME] IN BLOOD BY AUTOMATED COUNT 3.9 10*3/uL 3.6 - 11.2 09/13 Specimen Type: BLOOD No comment entered. Ordering Provider: ANGLE GOFF Report Released Date/Time: Sep 10, 2024 01:20 PM Reporting Lab: [place] [address] [facility] [address] Performing Lab: [address] [address] [facility] CBC ERYTHROCYT ES [#/VOLUME] IN BLOOD BY AUTOMATED COUNT 3.47 10*6/uL 4.10 - 5.70 09/13 L Specimen Type: BLOOD No comment entered. Ordering Provider: ANGLE GOFF Report Released Date/Time: Sep 10, 2024 01:20 PM Reporting Lab: [place] [address] [facility] [address] Performing Lab: [place] [address] [facility] [address] [facility] CBC HEMOGLOBIN [MASS/VOLU ME] IN BLOOD 13.3 g/dL 13.1 - 16.8 09/13 Specimen Type: BLOOD No comment entered. Ordering Provider: ANGLE GOFF Report Released Date/Time: Sep 10, 2024 01:20 PM Reporting Lab: [place] [address] [facility] [address] Performing Lab: [address] [address] [facility] CBC HEMATOCRIT [VOLUME FRACTION] OF BLOOD 38.6 38.2 - 48.4 09/13 Specimen Type: BLOOD No comment entered. Ordering Provider: ANGLE GOFF Report Released Date/Time: Sep 10, 2024 01:20 PM Reporting Lab: [address] [address] Performing Lab: [address] [address] [facility] CBC MCV [ENTITIC VOLUME] BY AUTOMATED COUNT 111.2 fL 80.0 - 100.0 09/13 H Specimen Type: BLOOD No comment entered. Ordering Provider: ANGLE GOFF Report Released Date/Time: Sep 10, 2024 01:20 PM Reporting Lab: [address] [address] Performing Lab: [address] [address] [facility] CBC MCH [ENTITIC MASS] BY AUTOMATED COUNT 38.3 pg 27.0 - 34.0 09/13 H Specimen Type: BLOOD No comment entered. Ordering Provider: ANGLE GOFF Report Released Date/Time: Sep 10, 2024 01:20 PM Reporting Lab: [address] [address] Performing Lab: [address] [address] [facility] CBC MCHC [MASS/VOLU ME] BY AUTOMATED COUNT 34.5 g/dL 33.0 - 36.0 09/13 Specimen Type: BLOOD No comment entered. Ordering Provider: ANGLE GOFF Report Released Date/Time: Sep 10, 2024 01:20 PM Reporting Lab: [address] [address] Performing Lab: [address] [address] [facility] CBC PLATELETS [#/VOLUME] IN BLOOD BY AUTOMATED COUNT 190 10*3/uL 150 - 400 09/13 Specimen Type: BLOOD No comment entered. Ordering Provider: ANGLE GOFF Report Released Date/Time: Sep 10, 2024 01:20 PM Reporting Lab: [place] [address] [facility] [address] Performing Lab: [facility] [address] [facility] [address] [facility] CBC PLATELET MEAN VOLUME [ENTITIC VOLUME] IN BLOOD BY AUTOMATED COUNT 8.3 fL 7.5 - 11.2 09/13 Specimen Type: BLOOD No comment entered. Ordering Provider: ANGLE GOFF Report Released Date/Time: Sep 10, 2024 01:20 PM Reporting Lab: [place] [address] [facility] [address] Performing Lab: [place] [address] [facility] [address] [facility] CBC ERYTHROCYT E DISTRIBUTI ON WIDTH [RATIO] BY AUTOMATED COUNT 13.3 11.8 - 15.1 09/13 Specimen Type: BLOOD No comment entered. Ordering Provider: ANGLE GOFF Report Released Date/Time: Sep 10, 2024 01:20 PM Reporting Lab: [place] [address] [facility] [address] Performing Lab: [place] [address] [facility] [address] [facility] CBC LYMPHOCYTE S/100 LEUKOCYTES IN BLOOD BY AUTOMATED COUNT 33 09/13 Specimen Type: BLOOD No comment entered. Ordering Provider: ANGLE GOFF Report Released Date/Time: Sep 10, 2024 01:20 PM Reporting Lab: [place] [address] [facility] [address] Performing Lab: [facility] [address] [facility] [address] [facility] CBC MONOCYTES/ 100 LEUKOCYTES IN BLOOD BY AUTOMATED COUNT 9 09/13 Specimen Type: BLOOD No comment entered. Ordering Provider: ANGLE GOFF Report Released Date/Time: Sep 10, 2024 01:20 PM Reporting Lab: [place] [address] [facility] [address] Performing Lab: [facility] [address] [facility] [address] [facility] CBC NEUTROPHIL S/100 LEUKOCYTES IN BLOOD BY AUTOMATED COUNT 50 09/13 Specimen Type: BLOOD No comment entered. Ordering Provider: ANGLE GOFF Report Released Date/Time: Sep 10, 2024 01:20 PM Reporting Lab: [place] [address] [facility] [address] Performing Lab: [place] [address] [facility] [address] [facility] CBC EOSINOPHIL S/100 LEUKOCYTES IN BLOOD BY AUTOMATED COUNT 7 09/13 Specimen Type: BLOOD No comment entered. Ordering Provider: ANGLE GOFF Report Released Date/Time: Sep 10, 2024 01:20 PM Reporting Lab: [address] [address] Performing Lab: [place] [address] [facility] [address] [facility] CBC BASOPHILS/ 100 LEUKOCYTES IN BLOOD BY AUTOMATED COUNT 1 09/13 Specimen Type: BLOOD No comment entered. Ordering Provider: ANGLE GOFF Report Released Date/Time: Sep 10, 2024 01:20 PM Reporting Lab: [place] [address] [facility] [address] Performing Lab: [address] [address] [facility] CBC LYMPHOCYTE S [#/VOLUME] IN BLOOD BY AUTOMATED COUNT 1.28 10*3/uL 0.77 - 4.50 09/13 Specimen Type: BLOOD No comment entered. Ordering Provider: ANGLE GOFF Report Released Date/Time: Sep 10, 2024 01:20 PM Reporting Lab: [address] [address] Performing Lab: [address] [address] [facility] CBC MONOCYTES [#/VOLUME] IN BLOOD BY AUTOMATED COUNT 0.37 10*3/uL 0.19 - 0.80 09/13 Specimen Type: BLOOD No comment entered. Ordering Provider: ANGLE GOFF Report Released Date/Time: Sep 10, 2024 01:20 PM Reporting Lab: [address] [address] Performing Lab: [address] [address] [facility] CBC NEUTROPHIL S [#/VOLUME] IN BLOOD BY AUTOMATED COUNT 1.98 10*3/uL 2.10 - 8.00 09/13 L Specimen Type: BLOOD No comment entered. Ordering Provider: ANGLE GOFF Report Released Date/Time: Sep 10, 2024 01:20 PM Reporting Lab: [place] [id number] Performing Lab: [address] [address] [facility] CBC EOSINOPHIL S [#/VOLUME] IN BLOOD BY AUTOMATED COUNT 0.27 10*3/uL 0.00 - 0.60 09/13 Specimen Type: BLOOD No comment entered. Ordering Provider: ANGLE GOFF Report Released Date/Time: Sep 10, 2024 01:20 PM Reporting Lab: [address] [address] Performing Lab: [address] [address] [facility] CBC BASOPHILS [#/VOLUME] IN BLOOD BY AUTOMATED COUNT 0.02 10*3/uL 0.00 - 0.20 09/13 Specimen Type: BLOOD No comment entered. Ordering Provider: ANGLE GOFF Report Released Date/Time: Sep 10, 2024 01:20 PM Reporting Lab: [address] [address] Performing Lab: [address] [address] [facility] CBC MACROCYTES [PRESENCE] IN BLOOD BY LIGHT MICROSCOPY 1+ 09/13 Specimen Type: BLOOD No comment entered. Ordering Provider: ANGLE GOFF Report Released Date/Time: Sep 10, 2024 01:20 PM Reporting Lab: [facility] [address] [facility] [address] Performing Lab: [facility] [address] [facility] [address] [facility] CBC POLYCHROMA KWAKU [PRESENCE] IN BLOOD BY LIGHT MICROSCOPY 1+ 09/13 Specimen Type: BLOOD No comment entered. Ordering Provider: ANGLE GOFF Report Released Date/Time: Sep 10, 2024 01:20 PM Reporting Lab: [address] [address] Performing Lab: [place] [address] [facility] [address] [facility] CBC PAPPENHEIM ER BODIES 0 09/13 Specimen Type: BLOOD No comment entered. Ordering Provider: ANGLE GOFF Report Released Date/Time: Sep 10, 2024 01:20 PM Reporting Lab: [place] [address] [facility] [address] Performing Lab: [place] [address] [facility] [address] [facility] CBC PLATELET ADEQUACY [PRESENCE] IN BLOOD BY LIGHT MICROSCOPY ADEQUATE 09/13 Specimen Type: BLOOD No comment entered. Ordering Provider: ANGLE GOFF Report Released Date/Time: Sep 10, 2024 01:20 PM Reporting Lab: [address] [address] Performing Lab: [facility] [address] [facility] [address] [facility] CBC MANUAL DIFFERENTI AL PERFORMED [PRESENCE] IN BLOOD YES 09/13 Specimen Type: BLOOD No comment entered. Ordering Provider: ANGLE GOFF Report Released Date/Time: Sep 10, 2024 01:20 PM Reporting Lab: [place] [address] [facility] [address] Performing Lab: [facility] [address] [facility] [address] [facility] LIPID PANEL (STL) CHOLESTERO L [MASS/VOLU ME] IN SERUM OR PLASMA 161 mg/dL 0 - 200 09/13 Specimen Type: PLASMA Comment: No hemolysis noted. Ordering Provider: ANGLE GOFF Report Released Date/Time: Sep 10, 2024 01:20 PM Reporting Lab: [place] [address] [facility] [address] Performing Lab: [place] [address] [facility] [address] [facility] HOSPITAL LIPID PANEL (STL) TRIGLYCERI DE [MASS/VOLU ME] IN SERUM OR PLASMA 59 mg/dL 0 - 150 09/13 Specimen Type: PLASMA Comment: No hemolysis noted. Ordering Provider: ANGLE GOFF Report Released Date/Time: Sep 10, 2024 01:20 PM Reporting Lab: [place] [address] [facility] [address] Performing Lab: [place] [address] [facility] [address] [facility] LIPID PANEL (STL) CHOLESTERO L IN LDL [MASS/VOLU ME] IN SERUM OR PLASMA BY CALCULATIO N 75 mg/dL 09/13 Specimen Type: PLASMA Comment: No hemolysis noted. Ordering Provider: ANGLE GOFF Report Released Date/Time: Sep 10, 2024 01:20 PM Reporting Lab: [place] [address] [facility] [address] Performing Lab: [address] [address] [facility] LIPID PANEL (STL) CHOLESTERO L IN HDL [MASS/VOLU ME] IN SERUM OR PLASMA 74 mg/dL 40 09/13 Specimen Type: PLASMA Comment: No hemolysis noted. Ordering Provider: ANGLE GOFF Report Released Date/Time: Sep 10, 2024 01:20 PM Reporting Lab: [address] [address] Performing Lab: [address] [address] [facility] HGA1C HEMOGLOBIN A1C/HEMOGL OBIN.TOTAL IN BLOOD 5.0 4.0 - 6.0 09/13 Specimen Type: BLOOD No comment entered. Ordering Provider: ANGLE GOFF Report Released Date/Time: Sep 10, 2024 01:20 PM Reporting Lab: [address] [address] Performing Lab: [address] [address] [facility] PROST. SPECIFIC AG.(PB-S TL) PROSTATE SPECIFIC AG [MASS/VOLU ME] IN SERUM OR PLASMA <0.100ng /mL 0 - 4 09/13 Specimen Type: SERUM Comment: The listed sex of this patient may not be a typical indication for this test. Therefore, reference ranges or interpretiv e criteria listed may not be valid. Clinical correlation suggested. Ordering Provider: ANGLE GOFF Report Released Date/Time: Sep 10, 2024 01:20 PM Reporting Lab: [address] [address] Performing Lab: [address] [address] [facility] HEP C Ab HCV Ab (STL) HEPATITIS C VIRUS AB [PRESENCE] IN SERUM Nonreact darius 09/13 Specimen Type: SERUM No comment entered. Ordering Provider: ANGLE GOFF Report Released Date/Time: Sep 10, 2024 01:20 PM Reporting Lab: [address] [address] Performing Lab: [address] [address] [facility] TSH W/ REFLEX FT4 (STL) THYROTROPI N [UNITS/VOL UME] IN SERUM OR PLASMA 0.684 u[IU]/mL 0.47 - 5 09/13 Specimen Type: PLASMA No comment entered. Ordering Provider: ANGLE GOFF Report Released Date/Time: Sep 10, 2024 01:20 PM Reporting Lab: [facility] [address] [facility] [address] Performing Lab: [facility] [address] [facility] [address] [facility] Vital Signs Combined list of inpatient and outpatient Vital Signs from Department of Defense and Veterans Affairs, ranging from 12 months to all on record, depending upon the facility. Vital Sign Value Date Comments Source SYSTOLIC BLOOD PRESSURE 118 09/16/2024 12:50:56 [facility] DIASTOLIC BLOOD PRESSURE 09/16/2024 12:50:56 [facility] PULSE OXIMETRY 99 09/16/2024 12:50:56 [facility] WEIGHT 184 09/16/2024 12:50:56 [facility] BMI 26 kg/m2 09/16/2024 12:50:56 [facility] PAIN 0 09/16/2024 12:50:56 [facility] HEIGHT 70 09/16/2024 12:50:56 [facility] TEMPERATURE 97.7 09/16/2024 12:50:56 [facility] PULSE 56 09/16/2024 12:50:56 [facility] RESPIRATION 16 09/16/2024 12:50:56 [facility] SYSTOLIC BLOOD PRESSURE 147 09/13/2024 08:37:01 [facility] DIASTOLIC BLOOD PRESSURE 85 09/13/2024 08:37:01 [facility] PULSE OXIMETRY 97 09/13/2024 08:37:[address] [facility] WEIGHT 179.1 09/13/2024 08:37:01 [facility] BMI 26 kg/m2 09/13/2024 08:37:01 [facility] PAIN 2 09/13/2024 08:37:01 [facility] HEIGHT 70 09/13/2024 08:37:01 [facility] TEMPERATURE 97.8 09/13/2024 08:37:01 [facility] PULSE 60 09/13/2024 08:37:01 [facility] RESPIRATION 20 09/13/2024 08:37:01 [facility] Encounters Combined list of: 1) Encounters from Department of [facility] Affairs facilities going backup to the last 18 months, not all [place] inpatient encounters are included; 2) Encounters from the Department of [facility] facilities going backup to 280 months. 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 PATIENCE GOFF 09/13 [facility] Outpatient Encounter [id number] PATIENCE GOFF 09/13 [facility] Outpatient Encounter [id number] PATIENCE GOFF 09/13 [facility] Outpatient Encounter [id number] [place] 09/13 [facility] Outpatient Encounter [id number] PATIENCE GOFF 09/13 [facility] Outpatient Encounter [id number] [place] 09/14 [facility] Outpatient Encounter [id number] 09/14 [facility] Outpatient Encounter [id number] 09/16 [facility] N [facility] OFFICE O/P EST [place] 40 MIN [id number] Diagnos is: ICD-10- CM I10 Essenti al (primar y) hyperte nsion VEL [place] B 09/16 [facility] Outpatient [facility]counter [id number] 09/23 [facility] Outpatient Encounter [id number] 01/09 [facility] Social History Combined list of available smoking, tobacco, and other social history from Department of Defense and Veterans Affairs facilities. Social History Type Response Date Comment Sourc e Tobacco smoking status KYIS IN-TOBACCO NEVER USED 09/13/2024 [facility]
--- OUTSIDE RECORDS SUMMARY | 2025-05-26 13:48 | XMS_ITS | Clinical Summary ---
Author Organization [facility] Address [facility] [place] [address] Care Team Providers Care Offbearer Name Role Phone Urbano Johnson MD Primary Care Provider [phone] Allergies Active Allergy Reactions Criticality Noted Date Comments Bee Venom Swelling High 07/20/2024 Medications Acetaminophen 500 MG Cap Take 500-1,000 mg by mouth 2 (two) times daily as needed (neck and shoulder pain). Active Multiple Vitamins-Drapery Operator als (MENS MULTIVITAMIN) Chew Tab Chew 1 tablet by mouth daily. Active EPINEPHrine 0.3 MG/0.3ML injectionIndic ations:Allergi c reaction, initial encounter Inject 0.3 mLs (0.3 mg total) into the muscle as needed for Anaphylaxis. 2 each 1 07/20/20 24 Active triamcinolone (KENALOG) 0.1 % ointmentIndica tions:Wasp sting, accidental or unintentional, subsequent encounter Apply topically 2 (two) times daily as needed. To rash on right arm for itching 15 g 1 07/22/20 24 Active pregabalin (LYRICA) 75 MG capsuleIndicat ions:Post herpetic neuralgia TAKE 1 CAPSULE BY MOUTH TWICE A DAY 60 capsule 03/21/20 25 Active Additional Information Patient not taking.Reported on 05/18/2025 tamsulosin (FLOMAX) 0.4 MG Cap Take 1 capsule (0.4 mg total) by mouth 2 (two) times daily. 03/31/20 25 Active atorvastatin (LIPITOR) 80 MG tabletIndicati ons:Non-STEMI (non-ST elevated myocardial infarction) (CMS/HCC HHS/HCC) TAKE 1 TABLET BY MOUTH EVERYDAY AT BEDTIME 90 tablet 1 05/06/20 25 Active aspirin EC (ASPIRIN LOW DOSE) 81 MG tabletIndicati ons:Non-STEMI (non-ST elevated myocardial infarction) (CMS/HCC HHS/HCC) TAKE 1 TABLET BY MOUTH EVERY DAY 90 tablet 1 05/06/20 25 Active metoprolol tartrate (LOPRESSOR) 25 MG tabletIndicati ons:Non-STEMI (non-ST elevated myocardial infarction) (CMS/HCC HHS/HCC) TAKE 1 TABLET BY MOUTH TWICE A DAY 180 tablet 1 05/13/20 25 Active lisinopril (PRINIVIL) 2.5 MG tabletIndicati ons:Non-STEMI (non-ST elevated myocardial infarction) (CMS/HCC HHS/HCC) TAKE 1 TABLET BY MOUTH EVERY DAY 90 tablet 1 05/13/20 25 Active metoprolol tartrate (LOPRESSOR) 25 MG tabletIndicati ons:Non-STEMI (non-ST elevated myocardial infarction) (CMS/HCC HHS/HCC) TAKE 1 TABLET BY MOUTH TWICE A DAY 180 tablet 1 11/15/20 24 025 Discontinued lisinopril (PRINIVIL) 2.5 MG tabletIndicati ons:Non-STEMI (non-ST elevated myocardial infarction) (CMS/HCC HHS/HCC) TAKE 1 TABLET BY MOUTH EVERY DAY 90 tablet 1 11/15/20 24 025 Discontinued atorvastatin (LIPITOR) 80 MG tabletIndicati ons:Non-STEMI (non-ST elevated myocardial infarction) (CMS/HCC HHS/HCC) TAKE 1 TABLET BY MOUTH EVERYDAY AT BEDTIME 90 tablet 02/10/20 25 025 Discontinued aspirin EC (ASPIRIN LOW DOSE) 81 MG tabletIndicati ons:Non-STEMI (non-ST elevated myocardial infarction) (CMS/HCC HHS/HCC) TAKE 1 TABLET BY MOUTH EVERY DAY 90 tablet 02/10/20 25 025 Discontinued Active Problems Problem Noted Date Diagnosed Date Malignant neoplasm of prostate (CMS/HCC HHS/HCC) 05/18/2025 Overview (05/18/2025): 12/06 cores GS 4+3=7 CAP Gg3 (FAHAD +) PSA 11.76 T1C (possible t3 on MRI imaging 1cm abutment of capsule) I discussed with pt, he understands he has prostate cancer Discussed NCCN guidelines-- un favorable intermediate risk Discussed options in layman's terms to the best of my ability, pictures used to illustrate his disease and assist with understanding of disease process Discussed and explained Kattann nomogram Based off of T1c 42% risk of organ confined disease, 54% of extracapsular extension, 10 % risk of LNI, 7% risk of seminal vesical invasion ( 14% risk of organ confined disease based off a T3) second opinion offered, he declines handouts given from [facility] -We will obtain a PSMA PET scan to stage and refer to Radiation Oncology Basal cell carcinoma of nose 05/18/2025 Overview (05/18/2025): Completed radiation treatment. Benign essential hypertension 04/05/2025 Elevated PSA 12/17/2023 Hyponatremia 10/24/2022 Left ventricular systolic dysfunction 05/22/2022 H/O heart artery stent 05/16/2022 Coronary artery disease invo lving [place] coronary artery of [place] heart without angina pectoris 05/16/2022 Primary osteoarthritis of right knee 10/30/2021 Overview (12/19/2021): Added automatically from request for surgery [id number] History of left knee replacement 02/01/2019 Cervical radiculopathy at C5 02/01/2019 Diverticulosis of large intestine without hemorr citlali 02/01/2019 Mixed hyperlipidemia 02/01/2019 Rotator cuff tear, right 07/22/2017 Hearing loss 10/23/2015 Calcific tendonitis of right foot 09/18/2015 Rosacea 02/02/2014 Rupture of biceps tendon 05/16/2010 Resolved Problems Problem Noted Date Diagnosed Date Resolved Date Elevated PSA 02/25/2024 05/18/2025 NSTEMI (non-ST elevated myoc ardial infarction) ([facility]) 05/10/2022 05/18/2025 Precordial pain 05/09/2022 05/10/2022 Fatigue 03/11/2018 05/10/2022 Encounters Date Type Department Care Team Description 05/18/2025 8:20 AM CDT Office Visit [facility] Family & Internal Medicine [address] [address] Urbano Johnson MD Follow Up; Hyperlipidemia; Coronary Artery Disease; Hypertension; Neuralgia (Pt was prescribed Lyrica for post herpetic neuralgia, pt no longer takes, he does still have pain intermittently); Elbow Pain (Patient c/o continued LT elbow pain. He received a cortisol injection in elbow about 5 wks ago. ); Prostate Cancer; Skin Cancer (Patient is currently undergoing radiation therapy for basal cell carcinoma) 05/18/2025 - 05/18/2025 11:59 PM CDT Hospital Encounter [facility] [address] Urbano Johnson MD Discharge Disposition: Home or Self Care (Routine Discharge) 05/18/2025 Travel 05/10/2025 Patient Outreach [facility] Family & Internal [address] [address] Urbano Johnson MD Pre-visit Gap Closure 04/29/2025 Results Follow-Up [facility], [address] [address] Kary Castro RN USE ECHOCARDIOGRAM 04/28/2025 6:44 AM CDT - 04/28/2025 11:59 PM CDT Hospital Encounter [facility] [place] [address] Kimi Clayton MD Discharge Disposition: Home or Self Care (Routine Discharge) 04/28/2025 Travel 04/08/2025 9:45 AM CDT Office Visit [facility], [address] [address] Kimi Clayton MD Coronary Artery Disease (6 mo follow up) 04/08/2025 Travel 03/31/2025 Scan [facility] SR[facility] Scanned, [facility] 03/23/2025 Scan [facility] Scanned, [facility] Pathology (SCAN) 03/22/2025 Telephone [facility] Family & Internal Medicine [address] [address] Urbano Johnson MD Question 03/07/2025 Results Follow-Up [facility] Family & Internal [address] [address] Bonnie Sebastian MA XR ELBOW LT 2V 03/02/2025 8:40 AM CDT Office Visit [facility] Family & Internal Medicine [address] [phone] Ana María Fenton, APNP Elbow Pain (Left elbow pain x years. Pain has changed/worsened x 4 months, is now radiating into forearm.) 03/02/2025 Travel from Last 3 Months Immunizations Immunization Administration Dates Next Due Influenza Adult (Generic) 09/10/2023(Deferred: P atient Refused) Pneumococcal (Pneumovax 23) 10/23/2015 Tdap (Generic) 03/14/2023 Family History Medical History Relation Comments Heart Brother COPD Father Stroke Father COPD Other CVA Other Relation Status Comments Brother Alive Father Mother Other Alive Social History Tobacco Use Types Packs/Day Years Used Date Smoking Tobacco: Never Smokeless Tobacco: Never Tobacco Cessation:Counseling Given: Not Answered Alcohol Use Standard Drinks/Week Comments Yes 5 (1 standard drink = 0.6 oz pur e alcohol) 3 beers per week AUDIT-C Answer Date Recorded Frequency of Alcohol Consumption 4 or more times a week 02/09/2020 Average Number of Drinks 1 or 2 020 Frequency of Binge Drinking Never 01/22 PHQ-2 Answer Date Recorded Patient Health Questionnaire-2 Score 0 03/02/2025 Sex and Gender Information Value Date Recorded Sex Assigned at Male 03/02/2025 8:48 AM CDT Legal Sex Male 5:42 PM CDT Gender Identity Not on file Sexual Orientation Not on file 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 Not on file Not on file Last Filed Vital Signs Vital Sign Reading Time Taken Comments Blood Pressure 138/84 05/18/2025 8:24 AM CDT Pulse 66 05/18/2025 8:24 AM CDT Temperature 37 C (98.6 F) 05/18/2025 8:24 AM CDT Respiratory Rate 18 05/18/2025 8:24 AM CDT Oxygen Saturation 98% 05/18/2025 8:24 AM CDT Inhaled Oxygen Concentration - - Weight 86.8 kg (191 lb 6.4 oz) 05/18/2025 8:24 A M CDT Height 177.8 cm (5' 10) 05/18/2025 8:24 AM CDT Body Mass Index 27.46 05/18/2025 8:24 AM CDT Plan of Treatment Upcoming Encounters Date Type Department Care Team (Late st Contact Info) Description 10/14/2025 10:00 AM SOFTWARE ENGINEER ADVISOR Office Visit [facility], [address] [place] [address] Kimi Clayton MD [facility] [address] [place] [address] 11/21/2025 8:20 AM SOFTWARE ENGINEER ADVISOR Office Visit [facility] Family & Internal Medicine [facility] [address] [place] [address] Urbano Johnson MD [facility] [place] [address] Health Maintenance Due Date Last Done Comments Annual Medicare Wellness Visit 10/02/2023 10/01/2022 (Previously completed) Zoster Vaccines (1 of 2) 06/17/2025 Pos tponed from 1999 (Future Appointment) COVID-19 Vaccine (3 - 2023-2 5 season) 2026 03/11/2021, 02/18/2021 Postponed from 07/25/2024 (Patient Refused) Pneumococcal Vaccine: 50+ Years (2 of 2 - PCV) 05/18/2026 10/23/2015 Postponed from 10/23/2016 (Patient Refused) RSV Immunization or 60+ Years (1 - 1-dose 75+ series) 05/18/2026 Postponed from 01/28/2024 (Patient Refused) DTaP, Tdap and Td Vaccines ( 2 - Td or Tdap) 03/14/2033 03/14/2023 Hepatitis C 10/01/2052 Postponed from 1967 (Patient Refused) Colorectal Cancer Screening Colonoscopy (10 Years) Discontinued 10/02/2017 PHQ-2 (Physician [place]) Completed 03/02/2025 Meningococcal B Vaccine Aged Out No l onger eligible based on patient's age to complete this topic Meningococcal Vaccine Aged Out No yaneli jamey eligible based on patient's age to complete this topic RSV Immunizations Under 20 Months Aged Out No longer eligible b ased on patient's age to complete this topic Procedures Procedure Name Priority Date/Time Associated Diagnosis Comments CBC W/DIFF AUTOMATED Routine 05/18/2025 12:11 PM CDT Benign essential hypertension Mixed hyperlipidemia Coronary artery disease involving [place] coronary artery of [place] heart without angina pectoris LIPID PANEL Routine 05/18/2025 12:11 PM CDT Benign essential hypertension Mixed hyperlipidemia Coronary artery disease involving [place] coronary artery of [place] heart without angina pectoris COMPREHENSIVE METABOLIC PANEL Routine 05/18/2025 12:11 PM CDT Benign essential hypertension Mixed hyperlipidemia Coronary artery disease involving [place] coronary artery of [place] heart without angina pectoris CK (CPK) Routine 05/18/2025 12:11 PM CDT Benign essential hypertension Mixed hyperlipidemia Coronary artery disease involving [place] coronary artery of [place] heart without angina pectoris URINALYSIS, AUTO, COMPLETE Routine 05/18/2025 12:11 PM CDT Benign essential hypertension Mixed hyperlipidemia Coronary artery disease involving [place] coronary artery of [place] heart without angina pectoris COLLECTION VENOUS BLOOD VENIPUNCTURE Routine 05/18/2025 9:27 AM CDT Benign essential hypertension Mixed hyperlipidemia Coronary artery disease involving [place] coronary artery of [place] heart without angina pectoris USE ECHOCARDIOGRAM Routine 04/28/2025 8: 00 AM CDT Non-rheumatic mitral regurgitation PATHOLOGY GENERIC (SCAN ORDER) 03/23/2025 XR ELBOW LT 2V Routine 03/02/2025 9:15 AM CDT Left elbow pain COLONOSCOPY GENERIC (SCAN ORDER) Routine 10/02/2017 from Last 3 Months or Most Recently Relevant to Health Maintenance Results * (ABNORMAL) URINALYSIS (05/18/2025 12:11 PM CDT) COLOR (U) YELLOW 05/18/2025 2:43 PM CDT [facility] TRANSPARENCY CLEAR CLEAR 05/18/2025 2:43 PM CDT [facility] SPECIFIC GRAVITY (U) 1.010 1.003 - 1.040 05/18/2025 2:43 PM CDT [facility] U PH 7.0 5.0 - 9.0 05/18/2025 2:43 PM T [facility] PROTEIN RANDOM (U) NEGATIVE NEGATIVE 05/18/2025 2:43 PM T [facility] GLUCOSE (U) NEGATIVE NEGATIVE 05/18/2025 2:43 PM CDT [facility] KETONES MG/DL (U) NEGATIVE NEGATIVE 05/18/2025 2:43 PM T [facility] BILIRUBIN (U) NEGATIVE NEGATIVE 05/18/2025 2:43 PM T [facility] BLOOD (U) NEGATIVE NEGATIVE 05/18/2025 2:43 PM T [facility] UROBILINOGEN 0.2 0.0 - 2.0 EU/DL 05/18/2025 2:43 PM T [facility] NITRITES NEGATIVE NEGATIVE 05/18/2025 2:43 PM CDT [facility] LEUKOCYTES (U) NEGATIVE NEGATIVE 05/18/2025 2:43 PM CDT [facility] RBC/HPF 0-3 0 - 3 /HPF 05/18/2025 2:43 PM CDT [facility] WBC/HPF 0-3 0 - 3 /HPF 05/18/2025 2:43 PM CDT [facility] EPI/HPF 0-3 /HPF 05/18/2025 2:43 PM CDT [facility] BACTERIA (U) TRACE(A) NONE SEEN 05/18/2025 2:43 PM CDT [facility] URINE SPECIMEN OBTAINED BY CLEAN CATCH PROCEDURE / Unknown 05/18/2025 12:11 PM CDT us Urbano Johnson MD URINE ORDERABLES [facility] [address] [place] [address], * (ABNORMAL) COMPREHENSIVE METABOLIC PANEL (05/18/2025 12:11 PM CDT) SODIUM S/P/B 139 136 - 145 MMOL/L 05/18/2025 3:31 PM CDT [facility] POTASSIUM S/P/B 4.7 3.5 - 5.1 MMOL/L 05/18/2025 3:31 PM CDT [facility] CHLORIDE S/P/B 102 98 - 107 MMOL/L 05/18/2025 3:31 PM CDT [facility] CO2 26.4 21 - 32 MMOL/L 05/18/2025 3:31 PM CDT [facility] GLUCOSE 108(H) 70 - 99 MG/DL 05/18/2025 3:31 PM CDT [facility] BUN 11 7 - 18 MG/DL 05/18/2025 3:31 PM CDT [facility] CREATININE S/P/B 0.62(L) 0.70 - 1.30 MG/DL 05/18/2025 3:31 PM CDT [facility] CALCIUM S/P/B 9.0 8.4 - 10.5 MG/DL 05/18/2025 3:31 PM CDT [facility] BILIRUBIN TOTAL S/P/B 0.6 0.2 - 1.0 MG/DL 05/18/2025 3:31 PM CDT [facility] ALKALINE PHOSPHATASE S/P/B 108 45 - 115 U/L 05/18/2025 3:31 PM CDT [facility] AST 35 15 - 37 U/L 05/18/2025 3:31 PM CDT [facility] ALT 33 16 - 63 U/L 05/18/2025 3:31 PM CDT [facility] TOTAL PROTEIN S/P/B 6.9 6.4 - 8.2 G/DL 05/18/2025 3:31 PM CDT [facility] ALBUMIN S/P/B 3.5 3.4 - 5.0 G/DL 05/18/2025 3:31 PM T [facility] ANION GAP 10.6 5 - 15 MMOL/L 05/18/2025 3:31 PM T [facility] Comment:REFERENCE RANGE NOT ESTABLISHED OSMOLALITY (CALC) 288 MOSM/KG 025 3:31 PM T [facility] Comment:REFERENCE RANGE NOT ESTABLISHED GFR ESTIMATE >90 >90 ML/MIN/1. 73 M2 05/18/2025 3:31 PM T [facility] GFR NOTES GFR REFERENCE S: 05/18/2025 3:31 PM T [facility] Comment: THE ESTIMATED GFR IS CALCULATED USING THE 2020 CKD-EPI EQUATION. THE FOLLOWING CATEGORIES FOR GRADING RENAL FUNCTION ARE RECOMMENDED BY THE INTERNATIONAL SOCIETY OF NEPHROLOGY (KDIGO 2012 CLINICAL PRACTICE GUIDELINE). G1,NORMAL OR HIGH: >89 ml/min/1.73 m2 G2,MILDLY DECREASED: 60-89 ml/min/1.73 m2 G3A,MILDLY TO MODERATELY DECREASED: 45-59 ml/min/1.73 m2 G3B,MODERATELY TO SEVERELY DECREASED: 30-44 ml/min/1.73 m2 G4,SEVERELY DECREASED: 15-29 ml/min/1.73 m2 G5,KIDNEY FAILURE: <15 ml/min/1.73 m2 05/18/2025 12:1 1 PM CDT Urbano Johnson MD LABORATORY Final Result [facility] [address] [place] [address], * LIPID PANEL (05/18/2025 12:11 PM CDT) CHOLESTEROL 150 <200 MG/DL 05/18/2025 3:31 PM CDT [facility] TRIGLYCERIDES 50 <150 MG/DL 05/18/2025 3:31 PM CDT [facility] HDL 61 >40 MG/DL 05/18/2025 3:31 PM CDT [facility] LDL-C 79 <100 MG/DL 05/18/2025 3:31 PM CDT [facility] VLDL CALCULATION 10 5 - 28 MG/DL 05/18/2025 3:31 PM CDT [facility] CHOL/HDL RATIO 2.5 0.0 - 4.0 05/18/2025 3:31 PM CDT [facility] LDL/HDL 1.3 0.41 - 2.13 05/18/2025 3:31 PM CDT [facility] NON HDL CHOLESTEROL 89 <140 MG/DL 05/18/2025 3:31 PM CDT [facility] 05/18/2025 12:1 1 PM CDT Urbano Johnson MD LABORATORY Final Result [facility] [id number] [place] [address], * (ABNORMAL) CBC W/DIFF AUTOMATED (05/18/2025 12:11 PM CDT) WBC 3.30(L) 4.00 - 10.80 x10'3/uL 05/18/2025 3:09 PM CDT [facility] RBC 3.30(L) 4.50 - 6.10 x10'6/uL 05/18/2025 3:09 PM CDT [facility] HGB 12.1(L) 13.0 - 18.0 G/DL 05/18/2025 3:09 PM CDT [facility] HCT 36.2(L) 37.0 - 52.0 % 05/18/2025 3:09 PM CDT [facility] MCV 109.7(H) 78.0 - 100.0 FL 05/18/2025 3:09 PM CDT [facility] MCH 36.7(H) 27.0 - 31.0 PG 05/18/2025 3:09 PM CDT [facility] MCHC 33.4 33.0 - 36.0 G/DL 05/18/2025 3:09 PM CDT [facility] RDW 13.7 11.5 - 14.5 % 05/18/2025 3:09 PM CDT [facility] PLT 198 150 - 350 x10'3/uL 05/18/2025 3:09 PM CDT [facility] MPV 8.8 7.4 - 10.4 FL 05/18/2025 3:09 PM T [facility] DIFFERENTIAL TYPE AUTOMATED DIFFERENTIAL 05/18/2025 3:09 PM CDT [facility] NEUTROPHILS % 45.5 % 05/18/2025 3:09 PM CDT [facility] LYMPHOCYTES % 31.8 % 05/18/2025 3:09 PM CDT [facility] MONOCYTES % 11.8 % 05/18/2025 3:09 PM CDT [facility] EOSINOPHILS % 9.7 % 05/18/2025 3:09 PM CDT [facility] BASOPHIL[facility] % 0.6 % 05/18/2025 3:09 PM CDT [facility] IMMATURE GRANS % 0.6 % 05/18/2025 3:09 PM CDT [facility] ABS. NEUTROPHILS 1.50(L) 1.60 - 8.30 x10'3/uL 05/18/2025 3:09 PM CDT [facility] ABS. LYMPHOCYTES 1.05 0.80 - 4.70 x10'3/uL 05/18/2025 3:09 PM CDT [facility] ABS. MONOCYTES 0.39 0.00 - 1.50 x10'3/uL 05/18/2025 3:09 PM CDT [facility] ABS. EOSINOPHILS 0.32 0.00 - 0.40 x10'3/uL 05/18/2025 3:09 PM CDT [facility] ABS. BASOPHILS 0.02 0.00 - 0.20 x10'3/uL 05/18/2025 3:09 PM CDT [facility] ABS. IMMATURE GRANULOCYTES 0.02 0.00 - 0.03 x10'3/uL 05/18/2025 3:09 PM CDT [facility] 05/18/2025 12:1 1 PM CDT us Urbano Johnson MD LABORATORY Final Result [facility] [address] [place] [address], * CK (CPK) (05/18/2025 12:11 PM CDT) CPK 120 39 - 308 U/L 05/18/2025 7:19 PM CDT [facility] 05/18/2025 12:1 1 PM CDT us Urbano Johnson MD LABORATORY Final Result [facility] [address] [place] [address], [id number] * USE ECHOCARDIOGRAM (04/28/2025 8:00 AM CDT) Anatomical Region Laterality Modality Cardiac Echocardiogram 04/28/2025 7:15 AM CDT Narrative 04/29/2025 10:34 AM CDT Echocardiography Report Pat.Name: PARVEZ SANTACRUZ Pat.ID: [id number] St.Date: 04/28/2025 Refer.MD: [id number] JULIETA CORTES EWDPSERJIOV EWDPROV Exam Time: 7:15:00 AM Study Type:ECHO WITH CARDIAC DOPPLER COMP Height: 70 in Weight: 187 lb BSA: 2.03 m2 Age: 3 1950,75Y Sex: M BP: 158/87 HR: 62 bpm Sonogrphr: Sheyla Addison Pat. Stat.:Outpatient Reason for Study:Mitral regurgitation Procedures: 2D, M-mode, Doppler, Color Flow, The study quality is technically adequate. Race: W ++++++++++++++++++++++++++++++++++++ SUMMARY: ++++++++++++++++++++++++++++++++++++ The left ventricular size is normal. Estimated left ventricular ejection fraction is 50-55%. There is no left ventricular hypertrophy. Left ventricular diastolic function is abnormal (grade 1 - impaired relaxation). The right ventricular size is normal. Right ventricular systolic function is normal. The left atrial volume is moderately increased (42-48 ml/M2). Right atrial size is moderately enlarged. Mild mitral regurgitation. Mild pulmonic regurgitation. Mild tricuspid regurgitation. The peak pulmonary artery systolic pressure is estimated to be approximately 33 mmHg. ++++++++++++++++++++++++++++++++++++ FINDINGS: ++++++++++++++++++++++++++++++++++++ LV: The left ventricular size is normal. Estimated left ventricular ejection fraction is 50-55%. There is no left ventricular hypertrophy. Left ventricular diastolic function is abnormal (grade 1 - impaired relaxation). RV: The right ventricular size is normal. Right ventricular systolic function is normal. IVS: No evidence of ventricular septal defect. LA: The left atrial volume is moderately increased (42-48 ml/M2). RA: Right atrial size is moderately enlarged. IAS: Atrial septum appears intact. ELLEN: No evidence of pericardial effusion. AO: Normal aortic root. The aortic root measures 3.8 cm. The proximal ascending aorta measures 3.7cm. PA: The peak pulmonary artery systolic pressure is estimated to be approximately 33 mmHg. Estimated right atrial pressure of 3 mmHg. SVn: Inferior vena cava is normal. AV: No evidence of aortic valve stenosis. No evidence of aortic valve regurgitation. Mild thickening of aortic valve leaflets. MV: Mild mitral regurgitation. No evidence of mitral stenosis. Mild thickening of the mitral valve leaflets. PV: No evidence of pulmonic valve stenosis. Mild pulmonic regurgitation. TV: Mild to moderate tricuspid regurgitation. No evidence of tricuspid valve stenosis. ++++++++++++++++++++++++++++++++++++ MEASUREMENTS: ++++++++++++++++++++++++++++++++++++ DOPPLER LVOT LVOTpkPG 4 mmHg LVOTmnPG 2 mmHg LVOTpkVel 103 cm/s (70-110) LVOT SV 78 ml LVOT TVI 24.9 cm AV Forward Flow AV TVI 33.1 cm AV pkPG 7 mmHg AV pkVel 133 cm/s (100-170) Area (TVI) 2.36 cm2 (3-5)* AV mnPG 4 mmHg Area (Ryland) 2.43 cm2 (3-5)* MV Forward Flow MV DeTm 357 msec MV E/A 0.6 MVA P1/2t 2.12 cm2 (4-6)* MV pkE 66 cm/s (60-130) MV P1/2t 104 msec (30-60)+* MV pkA 113 cm/s PV Forward Flow PV pkVel 113 cm/s (60-90)* PV AC 127 msec PV pkPG 5 mmHg RVOT RVOTpkV 66.7 cm/s TV Regurg Flow TV pkPG 30 mmHg TV pkVel 273 cm/s (30-70)* Lat E' Lat e 7.62 cm/s Lat E/E' Lat E/e 8.7 Med E' Med e 4.57 cm/s Med E/E' Med E/e 14.4 Aortic Valve Aortic Valve Ar 1.16 Aortic Valve Ve 0.77 PV Antegrade Flow Acceleration Sl 518 cm/s2 Right Atrium Khanna's Disk 20 Right Ventricle Right Ventricle 11.9 cm/s 2D Left Ventricle LVIDd 4.49 cm (3.6-5.2) LV ESV 49.1 ml LVIDs 2.7 cm (2.3-3.9) LV ESV 61.2 ml LngAxd 7.78 cm LVESV BP 55.5 ml LngAxd 7.91 cm LV EF 57.3 % LV EDV 115 ml LV EF 48.6 % LV EDV 119 ml LV EF BP 52.6 % LVEDV BP 117 ml LV SV 65.9 ml LngAxs 7.19 cm LV SV 57.8 ml LngAxs 6.92 cm LV SV BP 61.5 ml LVPW LVPWd 0.984 cm Ventricular Septum IVSd 1.09 cm Left Atrium LA VOLBP 78.2 ml Aorta Ao Rtd 3.8 cm (zsc 2.7)* Ao Asc 3.7 cm (zsc 3.9)* LVOT LVOT 2 cm LVOTArea 3.14 cm2 Ratios IVS LA Biplane LAVol I BP 38.5 ml/m2 RA Single Plane Right Atrium MO 12.4 mm Right Atrium Sy 50.7 ml Right Atrium Sy 55.9 mm Right Atrium Sy 25 ml/m2 Right Atrium Sy 18.4 cm2 Right Ventricle Right Ventricle 28.4 mm Right Ventricle 22 mm Major Murray 66 mm MMODE TA Tricuspid Annul 17.8 mm <Electronic Signature> 04/29/2025 10:34 AM Kimi Clayton M.D. Procedure Note Kimi Clayton MD - 04/29/2025 Echocardiography Report Pat.Name: PARVEZ SANTACRUZ Pat.ID: [id number] .Date: 04/28/2025 Refer.: [id number] JULIETA CORTES EWDPROV EWDPROV Exam Time: 7:15:00 AM Study Type:ECHO WITH CARDIAC DOPPLER COMP Height: 70 in Weight: 187 lb BSA: 2.03 m2 Age: 3 1950,75Y Sex: M BP: 158/87 HR: 62 bpm Sonogrphr: Sheyla Addison Pat. Stat.:Outpatient Reason for Study:Mitral regurgitation Procedures: 2D, M-mode, Doppler, Color Flow, The study quality is technically adequate. Race: W ++++++++++++++++++++++++++++++++++++ SUMMARY: ++++++++++++++++++++++++++++++++++++ The left ventricular size is normal. Estimated left ventricular ejection fraction is 50-55%. There is no left ventricular hypertrophy. Left ventricular diastolic function is abnormal (grade 1 - impaired relaxation). The right ventricular size is normal. Right ventricular systolic function is normal. The left atrial volume is moderately increased (42-48 ml/M2). Right atrial size is moderately enlarged. Mild mitral regurgitation. Mild pulmonic regurgitation. Mild tricuspid regurgitation. The peak pulmonary artery systolic pressure is estimated to be approximately 33 mmHg. ++++++++++++++++++++++++++++++++++++ FINDINGS: ++++++++++++++++++++++++++++++++++++ LV: The left ventricular size is normal. Estimated left ventricular ejection fraction is 50-55%. There is no left ventricular hypertrophy. Left ventricular diastolic function is abnormal (grade 1 - impaired relaxation). RV: The right ventricular size is normal. Right ventricular systolic function is normal. IVS: No evidence of ventricular septal defect. LA: The left atrial volume is moderately increased (42-48 ml/M2). RA: Right atrial size is moderately enlarged. IAS: Atrial septum appears intact. ELLEN: No evidence of pericardial effusion. AO: Normal aortic root. The aortic root measures 3.8 cm. The proximal ascending aorta measures 3.7cm. PA: The peak pulmonary artery systolic pressure is estimated to be approximately 33 mmHg. Estimated right atrial pressure of 3 mmHg. SVn: Inferior vena cava is normal. AV: No evidence of aortic valve stenosis. No evidence of aortic valve regurgitation. Mild thickening of aortic valve leaflets. MV: Mild mitral regurgitation. No evidence of mitral stenosis. Mild thickening of the mitral valve leaflets. PV: No evidence of pulmonic valve stenosis. Mild pulmonic regurgitation. TV: Mild to moderate tricuspid regurgitation. No evidence of tricuspid valve stenosis. ++++++++++++++++++++++++++++++++++++ MEASUREMENTS: ++++++++++++++++++++++++++++++++++++ DOPPLER LVOT LVOTpkPG 4 mmHg LVOTmnPG 2 mmHg LVOTpkVel 103 cm/s (70-110) LVOT SV 78 ml LVOT TVI 24.9 cm AV Forward Flow AV TVI 33.1 cm AV pkPG 7 mmHg AV pkVel 133 cm/s (100-170) Area (TVI) 2.36 cm2 (3-5)* AV mnPG 4 mmHg Area (Ryland) 2.43 cm2 (3-5)* MV Forward Flow MV DeTm 357 msec MV E/A 0.6 MVA P1/2t 2.12 cm2 (4-6)* MV pkE 66 cm/s (60-130) MV P1/2t 104 msec (30-60)+* MV pkA 113 cm/s PV Forward Flow PV pkVel 113 cm/s (60-90)* PV AC 127 msec PV pkPG 5 mmHg RVOT RVOTpkV 66.7 cm/s TV Regurg Flow TV pkPG 30 mmHg TV pkVel 273 cm/s (30-70)* Lat E' Lat e 7.62 cm/s Lat E/E' Lat E/e 8.7 Med E' Med e 4.57 cm/s Med E/E' Med E/e 14.4 Aortic Valve Aortic Valve Ar 1.16 Aortic Valve Ve 0.77 PV Antegrade Flow Acceleration Sl 518 cm/s2 Right Atrium Khanna's Disk 20 Right Ventricle Right Ventricle 11.9 cm/s 2D Left Ventricle LVIDd 4.49 cm (3.6-5.2) LV ESV 49.1 ml LVIDs 2.7 cm (2.3-3.9) LV ESV 61.2 ml LngAxd 7.78 cm LVESV BP 55.5 ml LngAxd 7.91 cm LV EF 57.3 % LV EDV 115 ml LV EF 48.6 % LV EDV 119 ml LV EF BP 52.6 % LVEDV BP 117 ml LV SV 65.9 ml LngAxs 7.19 cm LV SV 57.8 ml LngAxs 6.92 cm LV SV BP 61.5 ml LVPW LVPWd 0.984 cm Ventricular Septum IVSd 1.09 cm Left Atrium LA VOLBP 78.2 ml Aorta Ao Rtd 3.8 cm (zsc 2.7)* Ao Asc 3.7 cm (zsc 3.9)* LVOT LVOT 2 cm LVOTArea 3.14 cm2 Ratios IVS LA Biplane LAVol I BP 38.5 ml/m2 RA Single Plane Right Atrium MO 12.4 mm Right Atrium Sy 50.7 ml Right Atrium Sy 55.9 mm Right Atrium Sy 25 ml/m2 Right Atrium Sy 18.4 cm2 Right Ventricle Right Ventricle 28.4 mm Right Ventricle 22 mm Major Murray 66 mm MMODE TA Tricuspid Annul 17.8 mm <Electronic Signature> 04/29/2025 10:34 AM Kimi Clayton M.D. Kimi Clayton MD ECHO Final Resul t * PATHOLOGY GENERIC (SCAN ORDER) (03/23/2025) 03/23/2025 [facility] Scanned SCANNING Final Resu lt * XR ELBOW LT 2V (03/02/2025 9:15 AM CDT) Anatomical Region Laterality Modality Elbow Radiographic Valerie ging 03/02/2025 10:5 7 AM CDT Impressions 03/02/2025 10:58 AM CDT IMPRESSION: 1. No acute abnormality. 2. Prominent chronic degenerative changes. Ordered By: ANA MARÍA FENTON Interpreted By: Vipul Adkins MD, 03/02/2025 10:57 AM Narrative 03/02/2025 10:58 AM CDT [facility] and Internal [facility] [place] [address] Examination: XR ELBOW LT 2V Exam time: 03/02/2025 9:09 AM Clinical history: Chronic elbow pain Comparison: No prior exam Technique: AP and lateral views Findings: Relationships of the left elbow appear unremarkable. No evidence of fracture or acute osseous abnormality. No radiographic evidence of joint effusion. There are prominent chronic degenerative type changes. There is hypertrophic spurring of the left radial head and neck junction. There is hypertrophic change involving the left proximal ulna coronoid process and the anterior aspect of the left distal humeral trochlear region. There are prominent hypertrophic osseous densities in the region of the medial and lateral left distal humeral epicondyles locations. Procedure Note Vipul Adkins MD - 03/02/2025 [facility] [place] [address] Examination: XR ELBOW LT 2V Exam time: 03/02/2025 9:09 AM Clinical history: Chronic elbow pain Comparison: No prior exam Technique: AP and lateral views Findings: Relationships of the left elbow appear unremarkable. No evidenceof fracture or acute osseous abnormality. No radiographic evidence ofjoint effusion. There are prominent chronic degenerative type changes.There is hypertrophic spurring of the left radial head and neck junction.There is hypertrophic change involving the left proximal ulna coronoidprocess and the anterior aspect of the left distal humeral trochlearregion. There are prominent hypertrophic osseous densities in the regionof the medial and lateral left distal humeral epicondyles locations. IMPRESSION: 1. No acute abnormality. 2. Prominent chronic degenerative changes. Ordered By: ANA MARÍA FENTON Interpreted By: Vipul Adkins MD, 03/02/2025 10:57 AM us [facility] Final Resul t * COLONOSCOPY (10/02/2017) us Documents Scanned SCANNING Final Result [facility] from Last 3 Months or Most Recently Relevant to Health Maintenance Insurance [facility] MEDICARE Advance Directives * Full Code (Latest Code Status on File) Date Activated Date Inactivated Comments 06/20/2022 11:18 AM 06/20/2022 8:21 PM * Full Code Date Activated Date Inactivated Comments 05/12/2022 11:20 AM 05/13/2022 3:01 PM * Full Code Date Activated Date Inactivated Comments 05/10/2022 5:47 PM 05/12/2022 11:20 AM Care Teams Offbearer Relationship Specialty Start Date End Date Urbano Johnson MD [address] [place] [address] [facility] 10/23/15
--- OUTSIDE RECORDS SUMMARY | 2025-05-26 13:48 | XMS_ITS | Encounter Summary ---
Author Organization [facility] Address [address] [place] [address] Care Team Providers Care Batch Attendant Name Role Phone Urbano Johnson MD Primary Care Provider [phone] Encounter Details Date Type Department Care Team (Late st Contact Info) Description 02/17/2024 Prep for Procedure [facility] [place], [place] [id number] Bassam Mancilla MD [address] [facility] [address] [place], [place] [id number] Social History Tobacco Use Types Packs/Day Years Used Date Smoking Tobacco: Never Smokeless Tobacco: Never Alcohol Use Standard Drinks/Week Comments Yes 5 [...] please move on to questions 3-9 0 10/01/2022 Sex and Gender Information Value Date Recorded Sex Assigned at Male 03/02/2025 8:48 AM CDT Legal Sex Male 5:42 PM CDT Gender Identity Not on file Sexual Orientation Not on file 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 Not on file Not on file documented as of this encounter Functional Status [...] st Contact Info) Description 10/14/2025 10:00 AM HAND STITCHER Office Visit [facility], [address] [place] [address] Kimi Clayton MD [facility] [address] [place] [address] 11/21/2025 8:20 AM HAND STITCHER Office Visit [facility] Family & Internal Medicine - [address] [phone] Urbano Johnson MD [address] [place] [phone] documented as of this encounter Results * URINALYSIS WI REFLEX TO CULTURE (02/19/2024 7:22 AM CDT) SPECIMEN TYPE URINE CLEAN CATCH 02/19/2024 7:16 AM CDT [facility] COLOR (U) LIGHT YELLOW 02/19/2024 8:12 AM CDT [facility] TRANSPARENCY CLEAR 02/19/2024 8:12 AM T [facility] SPECIFIC GRAVITY (U) 1.009 1.001 - 1.030 02/19/2024 8:12 AM CDT [facility] U PH 7.5 5.0 - 9.0 02/19/2024 8:12 AM T [facility] LEUKOCYTES (U) NEGATIVE NEGATIVE 02/19/2024 8:12 AM T [facility] NITRITES NEGATIVE NEGATIVE 02/19/2024 8:12 AM T [facility] PROTEIN RANDOM (U) NEGATIVE <30 MG/DL 02/19/2024 8:12 AM T [facility] GLUCOSE (U) NORMAL NORMAL MG/DL 02/19/2024 8:12 AM T [facility] KETONES MG/DL (U) NEGATIVE NEGATIVE MG/DL 02/19/2024 8:12 AM T [facility] UROBILINOGEN NORMAL NORMAL MG/DL 02/19/2024 8:12 AM T [facility] BILIRUBIN (U) NEGATIVE NEGATIVE MG/DL 02/19/2024 8:12 AM T [facility] BLOOD (U) NEGATIVE NEGATIVE 02/19/2024 8:12 AM T [facility] CULTURE & SENSITIVITY INDICATED? CULTURE IS NOT INDICATED 02/19/2024 8:12 AM T [facility] WBC/HPF <1 <6 /HPF 02/19/2024 8:12 AM CDT [facility] RBC/HPF <1 <6 /HPF 02/19/2024 8:12 AM CDT [facility] URINE SPECIMEN OBTAINED BY CLEAN CATCH PROCEDURE / Unknown 02/19/2024 7:22 AM CDT us Bassam Mancilla MD URINE ORDERABLES Final Re sult [facility] [address] [place] [address], * (ABNORMAL) BASIC METABOLIC PANEL (02/19/2024 7:19 AM CDT) GLUCOSE 108(H) 70 - 99 MG/DL 02/19/2024 8:26 AM CDT [facility] BUN 10 7 - 18 MG/DL 02/19/2024 8:26 AM CDT [facility] CREATININE S/P/B 0.83 0.7 - 1.3 MG/DL 02/19/2024 8:26 AM CDT [facility] SODIUM S/P/B 135(L) 136 - 145 MMOL/L 02/19/2024 8:26 AM CDT [facility] POTASSIUM S/P/B 4.7 3.5 - 5.1 MMOL/L 02/19/2024 8:26 AM CDT [facility] CHLORIDE S/P/B 103 100 - 108 MMOL/L 02/19/2024 8:26 AM CDT [facility] CO2 26.6 21 - 32 MMOL/L 02/19/2024 8:26 AM CDT [facility] CALCIUM S/P/B 9.1 8.5 - 10.1 MG/DL 02/19/2024 8:26 AM CDT [facility] ANION GAP 5.4 5 - 15 MMOL/L 02/19/2024 8:26 AM CDT [facility] BUN CREATININE RATIO 12.0 6 - 26 02/19/2024 8:26 AM CDT [facility] GFR ESTIMATE >90 >90 ML/MIN/1.7 3 M2 02/19/2024 8:26 AM CDT [facility] Comment: NOTE: eGFR is not calculated for patients <18 years of age. This is an estimated GFR calculation using the new CKD EPI creatinine equation without race and so does not require a correction factor for race. This estimated GFR should not be used for calculating drug doses. 02/19/2024 7:19 AM CDT us Bassam Mancilla MD LABORATORY Final Res ult [facility] [address] [place] [address], [place] [phone] * (ABNORMAL) CBC W/DIFF AUTOMATED (02/19/2024 7:19 AM CDT) WBC 4.63 4.5 - 11.0 x10'3/uL 02/19/2024 8:54 AM CDT [facility] RBC 3.78(L) 4.70 - 6.10 x10'6/uL 02/19/2024 8:54 AM CDT [facility] HGB 13.9(L) 14.0 - 18.0 G/DL 02/19/2024 8:54 AM CDT [facility] HCT 40.1(L) 43.0 - 54.0 % 02/19/2024 8:54 AM CDT [facility] MCV 106.1(H) 80.0 - 94.0 FL 02/19/2024 8:54 AM CDT [facility] MCH 36.8(H) 27.0 - 31.0 PG 02/19/2024 8:54 AM CDT [facility] MCHC 34.7 32.0 - 36.0 G/DL 02/19/2024 8:54 AM CDT [facility] RDW 13.0 11.5 - 14.5 % 02/19/2024 8:54 AM CDT [facility] PLT 199 130 - 400 x10'3/uL 02/19/2024 8:54 AM CDT [facility] MPV 8.6(L) 9.3 - 12.2 FL 02/19/2024 8:54 AM CDT [facility] DIFFERENTIAL TYPE AUTOMATED DIFFERENTIAL 02/19/2024 8:54 AM CDT [facility] NEUTROPHILS % 34.8 % 02/19/2024 8:54 AM CDT [facility] LYMPHOCYTES % 41.9 % 02/19/2024 8:54 AM CDT [facility] MONOCYTES % 8.2 % 02/19/2024 8:54 AM CDT [facility] EOSINOPHILS 13.4 % 02/19/2024 8:54 AM CDT [facility] BASOPHILS 1.1 % 02/19/2024 8:54 AM CDT [facility] IMMATURE GRANS % 0.6 % 02/19/20 8:54 AM CDT [facility] ABS. NEUTROPHILS 1.61(L) 1.80 - 7.70 x10'3/uL 02/19/2024 8:54 AM CDT [facility] ABS. LYMPHOCYTES 1.94 1.00 - 4.80 x10'3/uL 02/19/2024 8:54 AM CDT [facility] ABS. MONOCYTES 0.38 0.30 - 0.82 x10'3/uL 02/19/2024 8:54 AM CDT [facility] ABS. EOSINOPHILS 0.62(H) 0.04 - 0.54 x10'3/uL 02/19/2024 8:54 AM CDT [facility] ABS. BASOPHILS 0.05 0.01 - 0.08 x10'3/uL 02/19/2024 8:54 AM CDT [facility] ABS. IMMATURE GRANULOCYTES 0.03 0.00 - 0.49 x10'3/uL 02/19/2024 8:54 AM CDT [facility] RBC MORPHOLOGY SLIDE REVIEWED 2023 8:54 AM CDT [facility] MACRO 1+ 02/19/2024 8:54 AM CDT [facility] PLT EST. ADEQUATE 02/19/2024 8:54 AM CDT [facility] 02/19/2024 7:19 AM CDT us Bassam Mancilla MD LABORATORY Final Res ult [facility] [address] [place] [address], documented in this encounter Visit Diagnoses Diagnosis Elevated PSA- Primary Elevated prostate specific antigen (PSA) Preop examination Preoperative examination, unspecified CAD (coronary artery disease) Coronary atherosclerosis of unspecified type of vessel, nondalton or graft HTN (hypertension) Unspecified essential hypertension H/O heart artery stent Postsurgical percutaneous transluminal coronary angioplasty status documented in this encounter Additional Health Concerns Assessment Noted Time PHQ-9 Depression Total Score: 0 10/01/20 22 9:03 AM HAND STITCHER documented as of this encounter Care Teams Batch Attendant Relationship Specialty Start Date End Date Urbano Johnson MD [address] [place] [address] PCP - General 10/23/15 documented as of this encounter
--- OUTSIDE RECORDS SUMMARY | 2025-05-26 13:48 | XMS_ITS | Clinical Summary ---
Author Organization [facility] Address [address] [place] [phone] Care Team Providers Care Golf Club Head Former Name Role Phone Urbano Johnson MD Primary Care Provider [phone] Og Posey MD Unavailable [phone] Kimi Clayton MD Unavailable [phone] Allergies Active Allergy Reactions Criticality Noted Date [...] dysfunction 05/22/2022 Coronary artery disease invo lving chipewwa coronary artery of chipewwa heart without angina pectoris 05/16/2022 H/O heart artery stent 05/16/2022 Status post total right knee replacement 022 Primary osteoarthritis of right knee 10/30/2021 Overview (10/30/2021): Added automatically from request for surgery [id number] Ganglion cyst 08/11/2019 Rupture of biceps tendon 05/16/2010 Encounters Date Type Department Care Team Description 04/25/2025 8:30 AM CDT Office Visit [facility] Hand Surgery [address] [place] [phone] Omar Garcia MD Arthritis of left elbow (Primary Dx) 03/28/2025 8:30 AM CDT Office Visit [facility] Hand Surgery [address] [place] [phone] Omar Garcia MD Left carpal tunnel syndrome (Primary Dx); Arthritis of left elbow; Trigger middle finger of right hand; Arthritis of left wrist 03/02/2025 - 03/02/2025 11:59 PM CDT Hospital Encounter [facility] [address] [place] [address] Discharge Disposition: Discharge to home or self care from Last 3 Months Surgical History Surgery Date Site/Laterality Comments TONSILLECTOMY ELBOW SURGERY Bilateral ulnar nerve decompression INGUINAL HERNIA REPAIR Right REPLACEMENT TOTAL KNEE 11/24/2015 - 11/23/2016 Left REPLACEMENT TOTAL KNEE 01/02/2022 Right CARDIAC STENT PLACEMENT 11/24/2021 - 11/23/2022 CARPAL TUNNEL RELEASE Bilateral PROSTATE BIOPSY 04/24/2024 - 05/23/2024 CARPAL TUNNEL RELEASE 11/19/2024 Left TRIGGER FINGER RELEASE 01/25/2025 Right long Medical History Medical History Date Comments Osteoarthritis Diverticulitis 2019 hospitalized Basal cell carcinoma x2 DDD (degenerative disc disea se), lumbar sciatic nerve pain down left side. Dental crown present Front upper teeth. Teeth grinding wears mouth guar d at night. Torn rotator cuff right shoulder . Carpal tunnel syndrome on right 11/10/2024 Coronary artery disease invo lving chipewwa coronary artery of chipewwa heart without angina pectoris 05/16/2022 H/O heart artery stent 05/16/2022 Primary osteoarthritis of right knee 10/30/2021 Added automatically from request for surgery [id number] Carcinoma of prostate (HCC) 11/10/2024 Hypertension 11/10/2024 Left ventricular systolic dysfunction 05/22/2022 [place] Family History Medical History Relation Name Comments Heart disease Father Arthritis Mother Relation Name Status Comments Father Mother Social History Tobacco Use Types Packs/Day Years [...] often do you attend chur ch or episcopalian services? Never 01/03/2022 Do you belong to any clubs o r organizations such as cheondoism groups, unions, fraternal or athletic groups, or [...] place to sleep or slept in a fci (including now)? No 01/03/2022 Personal Safety Answer Date Recorded Have you ever been in or are you currently in a harmful physical or emotional relationship or is someone making you feel afraid or unsafe? 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 Not on file Not on f ile Obstetrics History Last Filed Vital Signs Vital Sign Reading Time Taken Comments Blood Pressure 125/84 01/25/2025 8:00 AM [employer] TE[employer]ER Pulse 60 01/25/2025 8:00 AM [employer] TE[employer]ER Temperature 36.5 C (97.7 F) 01/25/2025 7:48 AM [employer] TE[employer]ER Respiratory Rate 18 01/25/2025 7:48 AM [employer] TE[employer]ER Oxygen Saturation 100% 01/25/2025 8:00 AM [employer] TE[employer]ER Inhaled Oxygen Concentration - - Weight 86.8 kg (191 lb 4.8 oz) 01/25/2025 5:59 A M [employer] TE[employer] Height 177.8 cm (5' 10) 01/25/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 Body Mass Index 27.45 01/25/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 Plan of Treatment Health Maintenance Due Date Last Done Comments Depression Screening 1950 Hepatitis C Screening 1950 Hepatitis B Screening 1967 Zoster Vaccine (1 of 2) 1999 Well Visit 65+ 2014 Pneumococcal vaccine 65+ (2 of 2 - PCV) 10/23/2016 1 12/23/2014 Covid-19 Vaccine ( season) 2024, 02/18/2021 Influenza Vaccine (Season Ended) 2025 Fall Risk Assessment 01/25/2026 01/25/2025 DTaP/Tdap/Td Vaccine (2 - Td or Tdap) 03/14/2033 Medical Devices Implanted Type Area Internet Technology Manager Device Identifier Shelf Expiration Date Model / Serial / Lot Left Total Knee Arthroplasty Implanted:Og Posey MD (Quantity not on file) Left: Knee Description:2016 Knee Replacement Bilatera l: Knee [employer] 6191-1-010 Simplex P Radiopaque Full Dose Cement Bone Sterile - [id number] Implanted:Qty: 1 on 01/02/2022 by Og Posey MD at [facility] Right: Knee [employer] 01/22/2024 6191-1-010 / / [id number] [employer]/Or tho [id number] Legion 11mm Cruciate Retaining High Flexion Knee 5-6 Insert - [id number] Implanted:Qty: 1 on 01/02/2022 by Og Posey MD at [facility] Right: Knee [employer] [id number] 10/20/2031 [id number] / / [id number] [employer]Or tho [id number] Kathy Ii Legion Spc Cruciate Retain Knee Right 7 Component - [id number] Implanted:Qty: 1 on 01/02/2022 by Og Posey MD at [facility] Right: Knee [employer] [id number] 08/21/2031 [id number] / / [id number] [employer]Or tho [id number] Kathy Ii [id number] Biconvex Component Patellar - [id number] Implanted:Qty: 1 on 01/02/2022 by Og Posey MD at [facility] [employer] [id number] / / [id number] [employer]Or tho [id number] Kathy Ii Cement Right Knee 6 Baseplate Tibial Titanium - [id number] Implanted:Qty: 1 on 01/02/2022 by Og Posey MD at [facility] [employer] [id number] / / [id number] Procedures Procedure Name Priority Date/Time Associated Diagnosis Comments [place] ARTHROCENTESIS ASPIR&/INJ INTERM JT/BURS W/O US Routine 03/28/2025 8:30 AM CDT Arthritis of left elbow XR TRANSFER OF OUTSIDE FILMS Routine 03/02/2025 12:00 AM CDT from Last 3 Months Results * [place] ARTHROCENTESIS ASPIR&/INJ INTERM JT/BURS W/O US (03/28/2025 8:30 AM CDT) Omar Yi MD - 03/28/2025 8:30 AM CDT Omar [...] (1 %); 80 mg triamcinolone 40 mg/mL Omar Garcia MD IN CLINIC/BEDSIDE ORDERA BLES Final Result * XR Outside Reference (03/02/2025 12:00 AM CDT) Narrative [facility] - 03/28/2025 8:31 AM CDT This order has been auto-finalized and does not contain a result. us Provider Transcribed Order IMG XR PROCEDURES Fin al Result [facility] from Last 3 [place] [address] [facility] TRADITIONAL [employer] TRADITIONAL OOS MEDICARE [employer] TRADITIONAL OOS MEDICARE [facility] Advance Directives For more information, please contact: [phone] * Full Code (Latest Code Status on File) Date Activated Date Inactivated Comments 01/02/2022 10:19 AM 01/03/2022 5:04 PM Care Teams Golf Club Head Former Relationship Specialty Start Date End Date Urbano Johnson MD PCP - General Internal Medicine 01/13/19 Og Posey MD [address] [place] [address] Consulting Physician Orthopedic Surgery 01/02/22 Kimi Clayton MD [address] [address] Referring Physician Pet Caretaker 11/11/24
--- OUTSIDE RECORDS SUMMARY | 2025-05-26 13:48 | XMS_ITS | Encounter Summary ---
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 Answer Date of Assessment Author Status No 05/10/2022 6:23 PM Carmela Chavarria RN Active * Because of a physical, mental, or emotional condition, do you have difficulty doing errands alone such as visiting a doctor's office or shopping? Answer Date of Assessment Author Status No 05/10/2022 6:23 PM Carmela Chavarria RN Active documented as of this encounter Mental Status * Because of a physical, mental, or emotional condition, do you have serious difficulty concentrating, remembering, or making decisions? Answer Entry Date Author Status No 05/10/2022 6:23 PM Carmela Chavarria RN Active documented in this encounter Plan of Treatment Upcoming Encounters Date Type Department Care Team (Late st Contact Info) Description 10/14/2025 10:00 AM SUPERVISOR HEAT TREATING Office Visit [facility], [address] [place] [address] Kmii Clayton MD [facility] [address] [place] [address] 11/21/2025 8:20 AM SUPERVISOR HEAT TREATING Office Visit [facility] [address] [address] Urbano Johnson MD [address] [place] [id number] documented as of this encounter Visit Diagnoses Not on filedocumented in this encounter Additional Health Concerns Assessment Noted Time PHQ-9 Depression Total Score: 0 10/01/20 22 9:03 AM SUPERVISOR HEAT TREATING documented as of this encounter Care Teams Marine Fuel Dock Attendant Relationship Specialty Start Date End Date Urbano Johnson MD [address] [place] [address] PCP - General 10/23/15 documented as of this encounter
--- OUTSIDE RECORDS SUMMARY | 2025-05-26 13:49 | XMS_ITS | Patient Health Record ---
Author Organization [facility] Address [address] [facility] [address] [address] Reason For Referral No Information Plan Of Treatment No Information
--- OUTSIDE RECORDS SUMMARY | 2025-05-26 13:49 | XMS_ITS | Clinical Summary ---
Author Organization [facility] Address [address] [place] [address] Care Team Providers Care Mental Health Technician Name Role Phone Unavailable Primary Care Provider Unavailabl e Social History Tobacco Use Types Packs/Day Years Used Date Smoking Tobacco: Never Assessed Sex and Gender Information Value Date Recorded Sex Assigned at Not on file Legal Sex Male 10:43 AM CDT Gender Identity Not on file Sexual Orientation Not on file Plan of Treatment Health Maintenance Due Date Last Done Comments ZOSTER VACCINE (1 of 2) 1999 PNEUMOCOCCAL VACCINE 50+ YEARS (2 of 2 - PCV) 10/23/20 16 10/23/2015 RSV VACCINE (60+ or ) (1 - 1-dose 75+ series) 01/28/2024 INFLUENZA VACCINE (#1) 2025 DTAP/TDAP/TD VACCINES (2 - Td or Tdap) 03/14/2033 Insurance [employer]
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
== END 2025-05-26 17:45 | disposition home or self-care (01) ==
PROVIDERS: Emergency Provider Physician Assistant; PCP Internal Medicine
DX: S01.312A Laceration without foreign body of left ear, initial encounter (principal); S41.112A Laceration without foreign body of left upper arm, initial encounter; V59.40XA Driver of pick-up truck or van injured in collision with unspecified motor vehicles in traffic accident, initial encounter
CPT/HCPCS: 12001; 12011; 70450; 72125; 73030; 99284